=== PATIENT | female | born 1945 | race Caucasian/White ===

== ENCOUNTER 2017-02-15 08:27 | Day surgery (SDC) | payer MEDICARE, BC ==
[2017-02-10 11:27] VITALS: BMI 23.0
[~2017-02-15 08:27] MED LIST: LIDOCAINE 1% 20 ML VIAL (10MG/ML) FOR IV START INTRADERMA PRN
[2017-02-15 09:25] VITALS: RESP 16; TEMP 97
[2017-02-15] MEDS: LACTATED RINGERS 1,000 ML IV SCH ×2 (09:36→10:02)
[2017-02-15] MEDS ORDERED: PROPOFOL 10 MG/ML 20 ML VIAL IV ONE (10:03)
--- NOTE | 2017-02-15 10:42 | P.PCN ---
Date of Procedure: 02/15/17 Procedure(s) Performed: Procedure: Total colonoscopy. Preoperative diagnosis: Screening for neoplasia, patient has history of polyps. Postoperative diagnosis: Exam within normal limits. Preparation: HalfLytely prep. Sedation: Was provided by anesthesia. Brief clinical history: The patient is a 71-year-old female who was scheduled for this evaluation for screening for neoplasia because of history of polyps. Her last examination was in September 2012 the patient has no abdominal complaints, bleeding or anemia. Procedure: With the patient on her left lateral decubitus position and after informed consent and adequate sedation, the perianal area was inspected and it did not show any fissures or fistulas. There were no masses felt on digital rectal examination. The Olympus CFQ 160L video colonoscope was then inserted in the rectum in the usual fashion and advanced to the cecum. The mucosa appeared healthy. No polyps or tumors were seen or any obvious diverticular disease or other pathology. I retroflexed endoscope in the rectum before the endoscope was withdrawn. The patient tolerated the procedure well. Plan: The patient was reassured. She will follow-up with you as planned and I recommended a repeat exam in 5 years depending on her overall health at that time. She will be discussing that with you.
[2017-02-15 10:59] VITALS: BP 146/75; PULSE 66
== END 2017-02-15 11:11 | disposition home or self-care (01) ==
LOC: ORWHC2ENDO 08:27
DX: Z12.11 Encounter for screening for malignant neoplasm of colon (principal); Z86.010 Personal history of colon polyps; K21.9 Gastro-esophageal reflux disease without esophagitis; E78.5 Hyperlipidemia, unspecified; G25.81 Restless legs syndrome; M19.90 Unspecified osteoarthritis, unspecified site; Z79.82 Long term (current) use of aspirin; Z79.891 Long term (current) use of opiate analgesic; Z79.899 Other long term (current) drug therapy
CPT/HCPCS: J2704; G0105

== ENCOUNTER → 2017-04-28 | Outpatient (CLI) | payer MEDICARE, BC ==
--- NOTE | 2017-04-28 10:56 | WWHP ---
DATE OF SERVICE: 04/28/2017 CHIEF COMPLAINT: The patient is here for her routine gynecologic exam. HPI: This is a 71-year-old G4, P3 with an LMP of 1988 who is status post [facility] for benign problems. The patient is without gynecologic complaints. PAST MEDICAL HISTORY: Depression and anxiety, elevated cholesterol, restless leg syndrome, macular degeneration, gastroesophageal reflux disease, osteopenia and basal cell skin cancer in the past. MEDICATIONS: 1. Cymbalta 60 mg daily. 2. Requip 2 mg t.i.d. 3. [place] 5/325 one q.i.d. p.r.n. 4. Ocuvite 1 daily. 5. Vytorin / daily. 6. Protonix 40 mg daily. 7. Aspirin 81 mg daily. 8. Motrin 600 mg b.i.d. p.r.n. ALLERGIES: No known drug allergies. PAST SURGICAL HISTORY: Foot surgery, left knee replacement 01/18/2014, right knee replacement 2015, left inguinal hernia repair 2015, colonoscopies 2011 and 2015, breast reduction surgery in 2000, [facility] with unilateral oophorectomy 1988. SOCIAL HISTORY: She denies tobacco and drug use and has about 3 to 4 alcoholic drinks per week. She has been since 1960. FAMILY HISTORY: Brother of heart disease. Father had heart disease. Sister had some type of cancer, but is uncertain of the type and brother had leukemia. REVIEW OF SYSTEMS: The patient has gained about 9 pounds over the last year. She denies respiratory, cardiac, or GI problems. She denies maltreatment or falling. : She denies any significant urinary leakage but does feel like her stream is slower, but this is not a problem for her. PHYSICAL EXAM: Blood pressure 156/79. Height 5 feet 4 inches. Weight 134 pounds. Temperature 98.4, pulse 66. This a well-developed, well-nourished white female who is alert and oriented x3 in no acute distress. HEENT is within normal limits. NECK: Supple without mass or thyromegaly. CHEST AND LUNGS: Clear to auscultation. HEART: Regular rate and rhythm. Breasts are without mass or discharge. There is central nipple inversion which the patient states has been that way for many years and no palpable masses or tenderness. Axillary exam is negative for adenopathy. BACK: Negative for CVA tenderness. ABDOMEN: Soft, nontender, without palpable masses. PELVIC EXAM: External genitalia reveals moderate atrophy without lesions. Vagina reveals moderate atrophy without lesions and there is a grade 2 rectocele which is stable from her previous exam. Bimanual exam is negative for mass or tenderness. Rectovaginal exam confirms a small rectocele and is negative for rectal masses or tenderness and is negative for occult blood. EXTREMITIES: Nontender. IMPRESSION: 1. A 71-year-old menopausal female, status post total abdominal hysterectomy and unilateral oophorectomy for benign reasons. 2. Grade 2 rectocele which is asymptomatic and is stable. 3. History of osteopenia. PLAN: 1. Pap smears have been discontinued. 2. Self breast examination was discussed. 3. Mammogram was recently done earlier this year at [facility], it was benign per the patient. She will repeat this and states she will plan on doing them here in the future. 4. Osteoporosis prevention was discussed. She had bone density testing done on 09/21/2016 which again showed osteopenia. Will plan on repeating this in about 2 years. 5. We have discussed her elevated blood pressure. I have recommended she do regular blood pressure checks and she will follow up with Dr. Amador for elevated blood pressure. 6. She will return in one year.
== END | disposition home or self-care (01) ==
LOC: WWCWWP 09:28
PROVIDERS: ATTEND Obstetrics & Gynecology
DX: Z53.9 Procedure and treatment not carried out, unspecified reason (principal)

== ENCOUNTER 2017-07-14 01:11 | Inpatient (IN) | payer MEDICARE, BC ==
[2017-07-14] MEDS ORDERED: ACETAMINOPHEN TAB 500 MG TAB PO STA (01:27)
[2017-07-14] MEDS ORDERED: SODIUM CHLORIDE 0.9% 500 ML IV SCH (01:30)
--- NOTE | 2017-07-14 01:30 | ED ---
General Adult HPI - General Chief complaint: Extremity Injury, Lower Stated complaint: pain Time Seen by Provider: 07/14/17 01:22 Source: patient, family, EMS, RN notes reviewed Mode of arrival: EMS Limitations: physical limitation - History of Present Illness Initial comments: Patient is a pleasant 71-year-old female presenting to the emergency Department with diffuse pain. Onset was around 9:00. Patient complains of pain all over, she feels mostly in her joints. Patient does have chronic arthritis however this feels somewhat different. No chest pain or dyspnea. No cough or upper respiratory symptoms. No dysuria or abdominal pain. - Related Data Home Medications Medication Instructions Recorded Confirmed Aspirin 81 mg PO DAILY 06/11/14 07/14/17 Calcium Citrate/Vitamin D3 1 each PO BID 06/11/14 07/14/17 [Calcium Citrate - Vit D3 Tab] Ezetimibe/Simvastatin [Vytorin 1 each PO DAILY 06/11/14 07/14/17 10-20 mg Tablet] Ibuprofen [Motrin] 600 mg PO TID PRN 06/11/14 07/14/17 Pantoprazole Sodium [Protonix] 40 mg PO BID PRN 06/11/14 07/14/17 Vit A,C & E/Lutein/Minerals 1 each PO DAILY 06/11/14 07/14/17 [Ocuvite Tablet] DULoxetine HCL [Cymbalta] 60 mg PO DAILY 02/10/17 07/14/17 rOPINIRole HCL [Requip] 2 mg PO TID 02/10/17 07/14/17 HYDROcodone/APAP 10-325MG [[place] 1 tab PO BID 07/14/17 07/14/17 10-325] Allergies Allergy/AdvReac Type Severity Reaction Status Date / Time No Known Allergies Allergy Verified 07/14/17 01:17 Review of Systems ROS Statement: Those systems with pertinent positive or pertinent negative responses have been documented in the HPI. ROS Other: All systems not noted in ROS Statement are negative. Constitutional: Denies: chills Eyes: Denies: eye pain ENT: Denies: ear pain Respiratory: Denies: cough, dyspnea Cardiovascular: Denies: chest pain Endocrine: Reports: fatigue Gastrointestinal: Denies: abdominal pain, nausea, vomiting Genitourinary: Denies: dysuria Musculoskeletal: Reports: arthralgia (Diffuse). Denies: back pain Skin: Denies: lesions Neurological: Denies: weakness Past Medical History Past Medical History: GERD/Reflux, Hyperlipidemia, Osteoarthritis (OA) Additional Past Medical History / Comment(s): RESTLESS LEG SYNDROME, History of Any Multi-Drug Resistant Organisms: None Reported Past Surgical History: Breast Surgery, Heart Catheterization, Hernia Repair, Hysterectomy, Joint Replacement, Orthopedic Surgery Additional Past Surgical History / Comment(s): RIGHT FOOT HAMMER TOE, harsh bunionectomy, harsh BREAST REDUCTION, RT KNEE UNISPACER, HARSH KNEE REPLACEMENT Past Anesthesia/Blood Transfusion Reactions: No Reported Reaction Past Psychological History: Depression Smoking Status: Never smoker Past Alcohol Use History: Occasional Past Drug Use History: None Reported - Past Family History Mother Family Medical History: Cancer Additional Family Medical History / Comment(s): ovarian Brother(s) Family Medical History: Cancer, Deep Vein Thrombosis (DVT) Additional Family Medical History / Comment(s): LEUKEMIA Sister(s) Family Medical History: Cancer, Deep Vein Thrombosis (DVT) Additional Family Medical History / Comment(s): 3 SISTERS HAD DVT General Exam Limitations: physical limitation General appearance: alert, in no apparent distress Head exam: Present: atraumatic Eye exam: Present: normal appearance, PERRL ENT exam: Present: normal oropharynx Neck exam: Present: normal inspection. Absent: tenderness, meningismus Respiratory exam: Present: normal lung sounds bilaterally Cardiovascular Exam: Present: regular rate, normal rhythm GI/Abdominal exam: Present: soft. Absent: tenderness Extremities exam: Present: full ROM, other (Diffuse joint deformity consistent with patient's history of rheumatoid arthritis. Mostly involving the hand/ fingers.). Absent: tenderness Neurological exam: Present: alert Psychiatric exam: Present: normal affect, normal mood Skin exam: Present: normal color. Absent: rash Course Vital Signs 07/14/17 07/14/17 07/14/17 01:11 01:47 02:14 Temperature 100.1 F H 98.4 F Pulse Rate 83 81 77 Respiratory 18 16 16 Rate Blood Pressure 165/79 147/66 128/60 O2 Sat by Pulse 99 97 100 Oximetry 07/14/17 07/14/17 07/14/17 02:54 03:45 05:19 Temperature 99.2 F 99.4 F Pulse Rate 81 76 88 Respiratory 16 16 18 Rate Blood Pressure 132/63 126/60 126/56 O2 Sat by Pulse 99 100 97 Oximetry - Reevaluation(s) Reevaluation #1: 07/14/17 04:45 Patient was reevaluated and did feel somewhat better. Patient does have evidence of urinary tract infection. Patient does not meet sepsis criteria. Patient still complains of pain all over. Patient states very abnormal for her. Patient was unable to get up and walk secondary to pain diffusely but mostly in the right foot. Patient and family were updated on results. Dr. Gonzalez was paged, covering for Dr. Amador. 07/14/17 05:26 Case was discussed in detail with Dr. Gonzalez, who will admit for Dr. Amador. She believes symptoms are likely secondary to flareup of rheumatoid arthritis from a urinary tract infection. She recommends adding Solu-Medrol 40 every 83 doses. EKG Findings - EKG Comments: EKG Findings:: Sinus rhythm at 81 with sinus arrhythmia. AK 138. QRS 92. QT 364. QTC 422. Normal axis. Normal QRS. No acute ST change. Medical Decision Making - Lab Data Result diagrams: 07/14/17 01:33 07/14/17 01:33 Lab Results 07/14/17 07/14/17 07/14/17 Range/Units 01:33 01:33 01:33 WBC 9.4 (3.8-10.6) k/uL RBC 3.75 L (3.80-5.40) m/uL Hgb 12.2 (11.4-16.0) gm/dL Hct 36.5 (34.0-46.0) % MCV 97.2 (80.0-100.0) fL MCH 32.4 (25.0-35.0) pg MCHC 33.4 (31.0-37.0) g/dL RDW 12.8 (11.5-15.5) % Plt Count 203 (150-450) k/uL Neutrophils % 87 % Lymphocytes % 7 % Monocytes % 3 % Eosinophils % 1 % Basophils % 0 % Neutrophils # 8.2 H (1.3-7.7) k/uL Lymphocytes # 0.7 L (1.0-4.8) k/uL Monocytes # 0.3 (0-1.0) k/uL Eosinophils # 0.1 (0-0.7) k/uL Basophils # 0.0 (0-0.2) k/uL PT (9.0-12.0) sec INR (<1.2) APTT (22.0-30.0) sec Sodium 139 (137-145) mmol/L Potassium 3.8 (3.5-5.1) mmol/L Chloride 108 H (98-107) mmol/L Carbon Dioxide 24 (22-30) mmol/L Anion Gap 7 mmol/L BUN 24 H (7-17) mg/dL Creatinine 0.60 (0.52-1.04) mg/dL Est GFR (MDRD) Af Amer >60 (>60 ml/min/1.73 sqM) Est GFR (MDRD) Non-Af >60 (>60 ml/min/1.73 sqM) Glucose 107 H (74-99) mg/dL Plasma Lactic Acid Rolan (0.7-2.0) mmol/L Calcium 9.0 (8.4-10.2) mg/dL Total Bilirubin 0.7 (0.2-1.3) mg/dL AST 26 (14-36) U/L ALT 44 (9-52) U/L Alkaline Phosphatase 57 (38-126) U/L Total Creatine Kinase 77 (30-135) U/L CK-MB (CK-2) 2.2 (0.0-2.4) ng/mL CK-MB (CK-2) Rel Index 2.9 Troponin I <0.012 (0.000-0.034) ng/mL Total Protein 5.8 L (6.3-8.2) g/dL Albumin 3.5 (3.5-5.0) g/dL Urine Color Urine Appearance (Clear) Urine pH (5.0-8.0) Ur Specific [place] (1.001-1.035) Urine Protein (Negative) Urine Glucose (UA) (Negative) Urine Ketones (Negative) Urine Blood (Negative) Urine Nitrite (Negative) Urine Bilirubin (Negative) Urine Urobilinogen (<2.0) mg/dL Ur Leukocyte Esterase (Negative) Urine RBC (0-5) /hpf Urine WBC (0-5) /hpf Ur Squamous Epith Cells (0-4) /hpf Urine Mucus (None) /hpf 07/14/17 07/14/17 07/14/17 Range/Units 01:33 01:33 02:08 WBC (3.8-10.6) k/uL RBC (3.80-5.40) m/uL Hgb (11.4-16.0) gm/dL Hct (34.0-46.0) % MCV (80.0-100.0) fL MCH (25.0-35.0) pg MCHC (31.0-37.0) g/dL RDW (11.5-15.5) % Plt Count (150-450) k/uL Neutrophils % % Lymphocytes % % Monocytes % % Eosinophils % % Basophils % % Neutrophils # (1.3-7.7) k/uL Lymphocytes # (1.0-4.8) k/uL Monocytes # (0-1.0) k/uL Eosinophils # (0-0.7) k/uL Basophils # (0-0.2) k/uL PT 10.3 (9.0-12.0) sec INR 1.0 (<1.2) APTT 21.4 L (22.0-30.0) sec Sodium (137-145) mmol/L Potassium (3.5-5.1) mmol/L Chloride (98-107) mmol/L Carbon Dioxide (22-30) mmol/L Anion Gap mmol/L BUN (7-17) mg/dL Creatinine (0.52-1.04) mg/dL Est GFR (MDRD) Af Amer (>60 ml/min/1.73 sqM) Est GFR (MDRD) Non-Af (>60 ml/min/1.73 sqM) Glucose (74-99) mg/dL Plasma Lactic Acid Rolan 1.5 (0.7-2.0) mmol/L Calcium (8.4-10.2) mg/dL Total Bilirubin (0.2-1.3) mg/dL AST (14-36) U/L ALT (9-52) U/L Alkaline Phosphatase (38-126) U/L Total Creatine Kinase (30-135) U/L CK-MB (CK-2) (0.0-2.4) ng/mL CK-MB (CK-2) Rel Index Troponin I (0.000-0.034) ng/mL Total Protein (6.3-8.2) g/dL Albumin (3.5-5.0) g/dL Urine Color Yellow Urine Appearance Clear (Clear) Urine pH 7.5 (5.0-8.0) Ur Specific [place] 1.016 (1.001-1.035) Urine Protein Negative (Negative) Urine Glucose (UA) Negative (Negative) Urine Ketones Negative (Negative) Urine Blood Negative (Negative) Urine Nitrite Negative (Negative) Urine Bilirubin Negative (Negative) Urine Urobilinogen <2.0 (<2.0) mg/dL Ur Leukocyte Esterase Large H (Negative) Urine RBC 2 (0-5) /hpf Urine WBC 16 H (0-5) /hpf Ur Squamous Epith Cells 2 (0-4) /hpf Urine Mucus Rare H (None) /hpf - Radiology Data Radiology results: image reviewed (Chest x-ray shows no acute process. X-ray of the right foot shows no fracture or malalignment. Severe midfoot osteoarthritis. Postsurgical changes.) Disposition Clinical Impression: Polyarthralgia, Urinary tract infection Disposition: ADMITTED IP TO THIS [facility] Referrals: Cale Amador MD [Primary Care Provider] - 1-2 days Decision Time: 05:26
[2017-07-14 01:50] LABS: Prothrombin Time 10.3 sec (9.0-12.0)
[2017-07-14 01:53] LABS: ALT 44 U/L (9-52); AST 26 U/L (14-36); Alkaline Phosphatase 57 U/L (38-126); Anion Gap 7 mmol/L; Basophils % (A) 0 %; Blood Urea Nitrogen 24 mg/dL (7-17); CH 32.7; CHCM 33.8; Carbon Dioxide 24 mmol/L (22-30); Chloride 108 mmol/L (98-107); Eosinophils # (A) 0.1 k/uL (0-0.7); Eosinophils % (A) 1 %; Glucose 107 mg/dL (74-99); HCT 36.5 % (34.0-46.0); HDW 2.39; HGB 12.2 gm/dL (11.4-16.0); Luc # (Auto) 0.08; Luc % (Auto) 1; Lymphocytes # (A) 0.7 k/uL (1.0-4.8); Lymphocytes % (A) 7 %; MCH 32.4 pg (25.0-35.0); MCHC 33.4 g/dL (31.0-37.0); MCV 97.2 fL (80.0-100.0); Mean Platelet Volume 6.6; Monocytes # (A) 0.3 k/uL (0-1.0); Monocytes % (A) 3 %; Neutrophils # (A) 8.2 k/uL (1.3-7.7); Neutrophils % (A) 87 %; Non-African American GFR(MDRD) >60 (>60 ml/min/1.73 sqM); Potassium 3.8 mmol/L (3.5-5.1); RBC 3.75 m/uL (3.80-5.40); RDW 12.8 % (11.5-15.5); Sodium 139 mmol/L (137-145); Total Bilirubin 0.7 mg/dL (0.2-1.3); Total Protein 5.8 g/dL (6.3-8.2); WBC 9.4 k/uL (3.8-10.6)
[2017-07-14 02:00] LABS: Creatine Kinase 77 U/L (30-135)
[2017-07-14 02:09] LABS: Partial Thromboplastin Time 21.4 sec (22.0-30.0)
[2017-07-14 02:13] LABS: Creatine Kinase MB 2.2 ng/mL (0.0-2.4); Troponin I <0.012 ng/mL (0.000-0.034)
[2017-07-14 02:26] LABS: Appearance,Urine Clear (Clear); Bilirubin,Urine Negative (Negative); Glucose,Urine (UA) Negative (Negative); Ketones,Urine Negative (Negative); Leukocyte Esterase,Urine Large (Negative); Mucus,Urine Rare /hpf; Nitrite,Urine Negative (Negative); PH, Urine 7.5 (5.0-8.0); Particle Count 3426; Protein,Urine Negative (Negative); RBC,Urine 2 /hpf (0-5); Specific Gravity,Urine 1.016 (1.001-1.035); Squamous Epithelial Cell,Urine 2 /hpf (0-4); UA Billing (MACRO vs. MICRO) MICRO; Urobilinogen,Urine <2.0 mg/dL (<2.0); WBC,Urine 16 /hpf (0-5)
--- NOTE | 2017-07-14 02:43 | XR ---
INDICATION: Fever COMPARISON: CXR 08/11/12 FINDINGS: AP and lateral views of the chest are obtained. The cardiomediastinal silhouette is within normal limits. There is thoracic aortic atherosclerosis. Pulmonary vascularity is normal. Lungs are clear. No pleural effusion or pneumothorax. Bony elements are within normal limits. IMPRESSION: No acute cardiopulmonary disease.
[2017-07-14] MEDS ORDERED: MORPHINE SULFATE 4 MG/ML SYRINGE IVP STA (02:48)
--- NOTE | 2017-07-14 03:51 | XR ---
RIGHT FOOT 3 views INDICATION: Right foot pain COMPARISON: None. FINDINGS: AP, oblique, and lateral nonweightbearing views of the right foot are obtained. Bones are osteopenic. There are postsurgical changes of the foot. There has been osteotomy of the first metatarsal fixated by 2 screws. There is partial osseous bridging across the osteotomy site. There has been likely bunionectomy. There is hardware in the first proximal phalanx. There has been surgical arthrodesis of the second proximal interphalangeal joint without fusion across the joint space at this time. There is no evidence of acute fracture or subluxation. There is severe mid foot osteoarthritis. There is mild plantar calcaneal enthesopathy. IMPRESSION: 1. No evidence of acute fracture or malalignment. 2. Postsurgical changes of bunionectomy and first metatarsal osteotomy and arthrodesis of the second proximal interphalangeal joint. 3. Severe midfoot osteoarthritis.
[2017-07-14] MEDS ORDERED: LEVOFLOXACIN 750MG-D5W PMX 750 MG in DEXTROSE/WATER 1 150ML.BAG IVPB STA (05:11)
[2017-07-14] MEDS ORDERED: LEVOFLOXACIN 750MG-D5W PMX 750 MG in DEXTROSE/WATER 1 150ML.BAG IVPB SCH (05:15)
[2017-07-14] MEDS ORDERED: NALOXONE 0.4 MG/ML 1 ML VIAL IV PRN (05:27)
[2017-07-14 06:40] VITALS: BMI 23.9
[2017-07-14] MEDS: methylPREDNISolone SOD SUCCI 40 MG/ML 1 ML VIAL IV SCH ×3 (06:49→17:49)
[2017-07-14] MEDS: MORPHINE SULFATE 4 MG/ML SYRINGE IV PRN ×3 (06:50→17:49)
[2017-07-14] MEDS ORDERED: PANTOPRAZOLE 40 MG TABLET PO PRN (09:29)
[2017-07-14] MEDS ORDERED: ASPIRIN 81 MG CHEW PO SCH (09:30)
[2017-07-14] MEDS ORDERED: EZETIMIBE 10 MG TAB PO SCH ×2 (09:30→10:40)
[2017-07-14] MEDS ORDERED: ATORVASTATIN 10 MG TAB PO SCH (10:00)
[2017-07-14] MEDS: DULoxetine HCL 60 MG CAPSULE.DR PO SCH (10:30)
[2017-07-14] MEDS: CALCIUM CARB-VIT D 500MG-200UN 1 EACH TAB PO SCH (10:32)
[2017-07-14] MEDS: HYDROcodone/APAP 10-325MG 1 EACH TAB PO PRN ×2 (10:36→22:42)
--- NOTE | 2017-07-14 16:32 | P.HPIM ---
History of Present Illness H&P Date: 07/14/17 Chief Complaint: Weakness polyarthritis pain, fever This Is a 71-year-old pleasant lady patient of Dr. Amador chest underlying history of hyperlipidemia o osteoarthritis GERD restless leg syndrome, admitted to the hospital secondary to acute onset generalized joint pains first involving the foot and ankles then bilateral knees, bilateral hips shoulders and wrists, is also accompanied by fever 100.9, patient denies any nausea no vomiting, no new medications or recent foreign travels, patient took Motrin for her restless leg and no cold for her arthritis pain however this is a new type of pain that she had secondary to generalized involvement of large joints, she also swelling and effusion of the right foot, patient denies any localized motor weakness significant for symptoms to include Guillaine- Darnell. The patient was not diagnosed to have rheumatoid arthritis in the past nor did she have any gout, no previous history of Lyme patient has significant pain in such a way that she cannot bear weight based on the significant pain on the right side. Patient has neck pain and back pain, or other extremity pain as well Emergency room she was evaluated however she was found to have pyuria with urinalysis and x-ray of the foot failed to reveal any fractures however she does have severe midfoot osteoarthritis, WBC was 9.4 creatinine 0.6 patient was admitted secondary to the fever and polyarthritis, urinary tract infection underlying early developing sepsis cannot be excluded she was started on IV Rocephin patient remains to be hemodynamically stable Review of Systems Constitutional: Reports as per HPI, Reports chills, Reports fatigue, Denies anorexia, Denies chronic headaches, Denies chronic pain, Denies daytime sleepiness, Denies fever, Denies lethargy, Denies malaise, Denies night sweats, Denies poor appetite, Denies sweats, Denies weakness, Denies weight gain, Denies weight loss Ears, nose, mouth and throat: Reports as per HPI, Denies ant. neck pain, Denies bleeding gums, Denies dental pain, Denies dysphagia, Denies epistaxis, Denies headache, Denies hoarseness, Denies mouth pain, Denies nasal congestion, Denies nasal discharge, Denies neck fullness/pressure, Denies neck lump, Denies nose pain, Denies odynophagia, Denies post-nasal drip, Denies sinus pain, Denies sinus pressure, Denies swelling in mouth, Denies swelling in throat, Denies sore throat, Denies vertigo, Denies voice changes Cardiovascular: Reports as per HPI, Denies chest pain, Denies claudication, Denies decreased exercise tolerance, Denies dyspnea on exertion, Denies edema, Denies high blood pressure, Denies irregular heart beat, Denies leg edema, Denies lightheadedness, Denies orthopnea, Denies palpitations, Denies paroxysmal nocturnal dyspnea, Denies phlebitis, Denies rapid heart beat, Denies shortness of breath, Denies syncope Respiratory: Reports as per HPI, Denies congestion, Denies cough, Denies cough with sputum, Denies dyspnea, Denies excessive sputum, Denies hemoptysis, Denies home oxygen, Denies pain, Denies pain on inspiration, Denies pleurisy, Denies respiratory infections, Denies sleep apnea, Denies snoring, Denies wheezing Gastrointestinal: Reports as per HPI, Denies abdominal pain, Denies belching, Denies bloating, Denies BRBPR, Denies change in bowel habits, Denies coffee ground emesis, Denies constipation, Denies diarrhea, Denies dyspepsia, Denies early satiety, Denies excessive gas, Denies heartburn, Denies hematemesis, Denies hematochezia, Denies indigestion, Denies jaundice, Denies lactose intolerance, Denies loss of appetite, Denies melena, Denies nausea, Denies vomiting Genitourinary: Reports as per HPI, Denies abnormal vaginal bleeding, Denies decreased libido, Denies difficulty conceiving, Denies difficulty voiding, Denies dysmenorrhea, Denies dyspareunia, Denies dysuria, Denies flank pain, Denies genital sores, Denies hematuria, Denies hot flashes, Denies incomplete emptying, Denies kidney stones, Denies menorrhagia, Denies mixed incontinence, Denies nocturia, Denies pelvic pain, Denies post void dribbling, Denies , Denies prolapse symptoms, Denies stress incontinence, Denies urge incontinence , Denies urgency, Denies urinary frequency, Denies vaginal discharge, Denies vaginal dryness, Denies vaginal itching, Denies vaginal odor Menstruation: Reports as per HPI, Denies amenorrhea, Denies amenorrhea on BC, Denies currently menstrual, Denies cycle < 21 days, Denies cycle > 35 days, Denies cycle variable, Denies menses 1-7 days, Denies menses 8 or > days, Denies menses variable, Denies period heavy, Denies period light, Denies period normal, Denies period spotting, Denies post hysterectomy, Denies postmenopausal , Denies premenarcheal Musculoskeletal: Reports as per HPI, Reports gait dysfunction, Reports limitation of motion, Reports morning stiffness, Reports neck pain, Denies arm numbness/tingling, Denies atrophy, Denies fractures, Denies frequent falls, Denies hot joints, Denies leg numbness/tingling, Denies loss of height, Denies low back pain, Denies muscle cramps, Denies muscle weakness, Denies myalgias, Denies neck stiffness, Denies prior amputations, Denies redness of joints, Denies shooting arm pain, Denies shooting leg pain Musculoskeletal: right: ankle swelling, foot swelling, hand pain, bilateral: ankle pain, elbow pain, elbow stiffness, foot pain, foot stiffness, hand stiffness, hip stiffness, hip swelling, knee pain, knee stiffness, shoulder pain , wrist pain Integumentary: Reports as per HPI Neurological: Reports as per HPI, Reports gait dysfunction, Denies aphasia, Denies ataxia, Denies balance difficulties, Denies burning pain, Denies change in mentation, Denies change in smell/taste, Denies change in speech, Denies confusion, Denies convulsions, Denies double vision, Denies head injury, Denies headaches, Denies hearing difficulties, Denies lack of coordination, Denies loss of vision, Denies memory loss, Denies migraines, Denies motor disturbance, Denies numbness, Denies paralysis, Denies paresthesias, Denies seizures, Denies sensory deficit, Denies spasticity, Denies syncope, Denies tic, Denies tingling , Denies transient paralysis, Denies tremors, Denies vertigo, Denies weakness, Denies visual changes Psychiatric: Reports as per HPI, Denies anhedonia, Denies anxiety, Denies anxiety attacks, Denies change in appetite, Denies change in libido, Denies change in sleep habits, Denies confusion, Denies depression, Denies difficulty concentrating, Denies disorientation, Denies hallucinations, Denies hopelessness , Denies hypersomnia, Denies insomnia, Denies irritability, Denies memory loss, Denies mood swings, Denies paranoia, Denies sadness/tearfulness, Denies sleep disturbances, Denies suicidal ideation Endocrine: Reports as per HPI, Denies cold intolerance, Denies deepening of the voice, Denies excessive sweating, Denies excessive thirst, Denies fatigue, Denies flushing, Denies heat intolerance, Denies high blood sugars, Denies increase in ring/shoe/hat size, Denies low blood sugars, Denies nocturia, Denies palpitations, Denies polydipsia, Denies polyphagia, Denies polyuria, Denies proptosis, Denies recent glucocorticoid use, Denies thyroid mass, Denies weight change Hematologic/Lymphatic: Reports as per HPI, Denies easy bleeding, Denies easy bruising, Denies lymphadenopathy, Denies lymphedema, Denies thrombophilia Allergic/Immunologic: Reports as per HPI, Denies allergic rhinitis, Denies anaphylaxis, Denies angioedema, Denies gluten intolerance, Denies persistent infections, Denies seasonal allergies, Denies urticaria, Denies wheezing Past Medical History Past Medical History: GERD/Reflux, Hyperlipidemia, Osteoarthritis (OA) Additional Past Medical History / Comment(s): RESTLESS LEG SYNDROME, History of Any Multi-Drug Resistant Organisms: None Reported Past Surgical History: Breast Surgery, Heart Catheterization, Hernia Repair, Hysterectomy, Joint Replacement, Orthopedic Surgery Additional Past Surgical History / Comment(s): RIGHT FOOT HAMMER TOE, harsh bunionectomy, harsh BREAST REDUCTION, HARSH KNEE REPLACEMENT Past Anesthesia/Blood Transfusion Reactions: No Reported Reaction Smoking Status: Never smoker Past Alcohol Use History: Occasional Additional Past Alcohol Use History / Comment(s): . Past Drug Use History: None Reported - Past Family History Mother Family Medical History: Cancer Additional Family Medical History / Comment(s): ovarian Brother(s) Family Medical History: Cancer, Deep Vein Thrombosis (DVT) Additional Family Medical History / Comment(s): LEUKEMIA Sister(s) Family Medical History: Cancer, Deep Vein Thrombosis (DVT) Additional Family Medical History / Comment(s): 3 SISTERS HAD DVT Medications and Allergies Home Medications Medication Instructions Recorded Confirmed Type Aspirin 81 mg PO DAILY 06/11/14 07/14/17 History Calcium Citrate/Vitamin D3 1 tab PO BID 06/11/14 07/14/17 History [Calcium Citrate - Vit D3 Tab] Ezetimibe/Simvastatin [Vytorin 1 tab PO DAILY 06/11/14 07/14/17 History 10-20 mg Tablet] Ibuprofen [Motrin] 600 mg PO TID PRN 06/11/14 07/14/17 History Pantoprazole Sodium [Protonix] 40 mg PO BID PRN 06/11/14 07/14/17 History Vit A,C & E/Lutein/Minerals 1 tab PO DAILY 06/11/14 07/14/17 History [Ocuvite Tablet] DULoxetine HCL [Cymbalta] 60 mg PO DAILY 02/10/17 07/14/17 History rOPINIRole HCL [Requip] 2 mg PO TID 02/10/17 07/14/17 History HYDROcodone/APAP 10-325MG [[place]lin 1 tab PO BID 07/14/17 07/14/17 History 10-325] Allergies Allergy/AdvReac Type Severity Reaction Status Date / Time No Known Allergies Allergy Verified 07/14/17 07:36 Physical Exam Vitals: Vital Signs Temp Pulse Pulse Resp BP BP Pulse Ox 07/14/17 09:29 98.4 F 07/14/17 06:37 98.5 F 82 20 119/71 100 07/14/17 05:19 99.4 F 88 18 126/56 97 07/14/17 03:45 99.2 F 76 16 126/60 100 07/14/17 02:54 81 16 132/63 99 07/14/17 02:14 98.4 F 77 16 128/60 100 07/14/17 01:47 81 16 147/66 97 07/14/17 01:11 100.1 F H 83 18 165/79 99 Intake and Output 07/13/17 07/14/17 07/14/17 22:59 06:59 14:59 Other: Weight 61.235 kg - Constitutional General appearance: cooperative, no acute distress - EENT Eyes: anicteric sclerae, EOMI, PERRLA ENT: NA/AT, normal oropharynx - Neck Neck: no lymphadenopathy, normal ROM, no other, no rigidity, no stridor, no thyromegaly Thyroid: bilateral: normal size - Respiratory Respiratory: bilateral: CTA, diminished - Cardiovascular Rhythm: regular Heart sounds: normal: S1, S2 Abnormal Heart Sounds: no systolic murmur, no diastolic murmur, no rub, no S3 Gallop, no S4 Gallop, no click, no other - Gastrointestinal General gastrointestinal: normal bowel sounds, soft - Integumentary Integumentary: normal, normal turgor - Neurologic Neurologic: CNII-XII intact - Musculoskeletal Musculoskeletal: gait normal, strength equal bilaterally - Psychiatric Psychiatric: A&O x's 3, intact judgment & insight Results CBC & Chem 7: 07/14/17 01:33 07/14/17 01:33 Labs: Abnormal Lab Results - Last 24 Hours (Table) 07/14/17 07/14/17 07/14/17 Range/Units 01:33 01:33 01:33 RBC 3.75 L (3.80-5.40) m/uL Neutrophils # 8.2 H (1.3-7.7) k/uL Lymphocytes # 0.7 L (1.0-4.8) k/uL APTT 21.4 L (22.0-30.0) sec Chloride 108 H (98-107) mmol/L BUN 24 H (7-17) mg/dL Glucose 107 H (74-99) mg/dL Total Protein 5.8 L (6.3-8.2) g/dL Ur Leukocyte Esterase (Negative) Urine WBC (0-5) /hpf Urine Mucus (None) /hpf 07/14/17 Range/Units 02:08 RBC (3.80-5.40) m/uL Neutrophils # (1.3-7.7) k/uL Lymphocytes # (1.0-4.8) k/uL APTT (22.0-30.0) sec Chloride (98-107) mmol/L BUN (7-17) mg/dL Glucose (74-99) mg/dL Total Protein (6.3-8.2) g/dL Ur Leukocyte Esterase Large H (Negative) Urine WBC 16 H (0-5) /hpf Urine Mucus Rare H (None) /hpf Microbiology - Last 24 Hours (Table) 07/14/17 02:08 Urine Culture - Preliminary Urine,Voided Laboratory Results WBC 9.4 k/uL (3.8-10.6) 07/14/17 01:33 RBC 3.75 m/uL (3.80-5.40) L 07/14/17 01:33 Hgb 12.2 gm/dL (11.4-16.0) 07/14/17 01:33 Hct 36.5 % (34.0-46.0) 07/14/17 01:33 MCV 97.2 fL (80.0-100.0) 07/14/17 01:33 MCH 32.4 pg (25.0-35.0) 07/14/17 01:33 MCHC 33.4 g/dL (31.0-37.0) 07/14/17 01:33 RDW 12.8 % (11.5-15.5) 07/14/17 01:33 Plt Count 203 k/uL (150-450) 07/14/17 01:33 Neutrophils % 87 % 07/14/17 01:33 Lymphocytes % 7 % 07/14/17 01:33 Monocytes % 3 % 07/14/17 01:33 Eosinophils % 1 % 07/14/17 01:33 Basophils % 0 % 07/14/17 01:33 Neutrophils # 8.2 k/uL (1.3-7.7) H 07/14/17 01:33 Lymphocytes # 0.7 k/uL (1.0-4.8) L 07/14/17 01:33 Monocytes # 0.3 k/uL (0-1.0) 07/14/17 01:33 Eosinophils # 0.1 k/uL (0-0.7) 07/14/17 01:33 Basophils # 0.0 k/uL (0-0.2) 07/14/17 01:33 ESR 12 mm/hr (0-20) 07/14/17 01:33 PT 10.3 sec (9.0-12.0) 07/14/17 01:33 INR 1.0 (<1.2) 07/14/17 01:33 APTT 21.4 sec (22.0-30.0) L 07/14/17 01:33 Sodium 139 mmol/L (137-145) 07/14/17 01:33 Potassium 3.8 mmol/L (3.5-5.1) 07/14/17 01:33 Chloride 108 mmol/L (98-107) H 07/14/17 01:33 Carbon Dioxide 24 mmol/L (22-30) 07/14/17 01:33 Anion Gap 7 mmol/L 07/14/17 01:33 BUN 24 mg/dL (7-17) H 07/14/17 01:33 Creatinine 0.60 mg/dL (0.52-1.04) 07/14/17 01:33 Est GFR (MDRD) Af Amer >60 (>60 ml/min/1.73 sqM) 07/14/17 01:33 Est GFR (MDRD) Non-Af >60 (>60 ml/min/1.73 sqM) 07/14/17 01:33 Glucose 107 mg/dL (74-99) H 07/14/17 01:33 Plasma Lactic Acid Rolan 1.5 mmol/L (0.7-2.0) 07/14/17 01:33 Calcium 9.0 mg/dL (8.4-10.2) 07/14/17 01:33 Total Bilirubin 0.7 mg/dL (0.2-1.3) 07/14/17 01:33 AST 26 U/L (14-36) 07/14/17 01:33 ALT 44 U/L (9-52) 07/14/17 01:33 Alkaline Phosphatase 57 U/L (38-126) 07/14/17 01:33 Total Creatine Kinase 77 U/L (30-135) 07/14/17 01:33 CK-MB (CK-2) 2.2 ng/mL (0.0-2.4) 07/14/17 01:33 CK-MB (CK-2) Rel Index 2.9 07/14/17 01:33 Troponin I <0.012 ng/mL (0.000-0.034) 07/14/17 01:33 C-Reactive Protein 8.5 mg/L (<10.0) 07/14/17 01:33 Total Protein 5.8 g/dL (6.3-8.2) L 07/14/17 01:33 Albumin 3.5 g/dL (3.5-5.0) 07/14/17 01:33 Urine Color Yellow 07/14/17 02:08 Urine Appearance Clear (Clear) 07/14/17 02:08 Urine pH 7.5 (5.0-8.0) 07/14/17 02:08 Ur Specific [place] 1.016 (1.001-1.035) 07/14/17 02:08 Urine Protein Negative (Negative) 07/14/17 02:08 Urine Glucose (UA) Negative (Negative) 07/14/17 02:08 Urine Ketones Negative (Negative) 07/14/17 02:08 Urine Blood Negative (Negative) 07/14/17 02:08 Urine Nitrite Negative (Negative) 07/14/17 02:08 Urine Bilirubin Negative (Negative) 07/14/17 02:08 Urine Urobilinogen <2.0 mg/dL (<2.0) 07/14/17 02:08 Ur Leukocyte Esterase Large (Negative) H 07/14/17 02:08 Urine RBC 2 /hpf (0-5) 07/14/17 02:08 Urine WBC 16 /hpf (0-5) H 07/14/17 02:08 Ur Squamous Epith Cells 2 /hpf (0-4) 07/14/17 02:08 Urine Mucus Rare /hpf (None) H 07/14/17 02:08 Thrombosis Risk Factor Assmnt - DVT/VTE Prophylaxis DVT/VTE Prophylaxis: Pharmacologic Prophylaxis ordered, Mechanical Prophylaxis ordered, Low risk, early ambulation encouraged - Choose All That Apply Any of the Below Risk Factors Present?: No Other Risk Factors: Yes Each Risk Factor Represents 2 Points: Age 61-74 years, Patient confined to bed Thrombosis Risk Factor Assessment Total Risk Factor Score: 4 Thrombosis Risk Factor Assessment Level: Moderate Risk Assessment and Plan Plan: 1. Acute febrile illness with polyarthritis symmetrical joint involvement along with pyuria, out to immune arthritis cannot be ruled out including new onset chest arthritis, patient would be given IV antibiotics for urinary tract infection, early sepsis is entertained, monitor for hemodynamic compensation along with bacteremia, patient is on IV Levaquin. Blood cultures are pending, 2. Acute polyarthritis symmetrical in distribution, a cannot be ruled out, she would have an RAYMUNDO and a and a CCP sed rate will be obtained, along with Crystal bone disease, uric acid calcium levels normal will be obtained. Patient was given 3 doses of Solu-Medrol 60 mg every 6 hours, would consult physical therapy and a serum protein electrophoresis 3. Hyperlipidemia 4. Inability to ambulate with foot deformities acute, physical therapy will be seeing her 5. Hyperlipidemia on Vytorin X 6. Restless leg on the. No 2 mg 3 times a day 7. DVT prophylaxis with mechanical as well as pharmacological treatments, patient's high risk 8. GI prophylaxis, on Protonix expected length of stay 2 nights anticipate home therapies
--- NOTE | 2017-07-14 17:59 | US ---
EXAMINATION TYPE: US kidneys/renal and bladder DATE OF EXAM: 07/14/2017 COMPARISON: Prior US in PACS CLINICAL HISTORY: flank pain, uti. EXAM MEASUREMENTS: Right Kidney: 10.3 x 5.5 x 4.7 cm Left Kidney: 9.3 x 4.8 x 5.1 cm Right Kidney: No hydronephrosis or masses seen Left Kidney: No hydronephrosis or masses seen Bladder: wnl Bilateral Jets seen: Yes There is no evidence for hydronephrosis at this point in time. No nephrolithiasis is seen. No luis s are identified. The urinary bladder is anechoic. Bilateral ureteral jets are seen. IMPRESSION: Negative retroperitoneal sonogram exam. No evidence of renal stone or obstruction.
[2017-07-14] MEDS: Acetaminophen-Codeine 300-30mg TAB PO PRN (20:21)
[2017-07-14] MEDS: ASPIRIN 81 MG CHEW PO SCH (20:24)
[2017-07-14] MEDS: ENOXAPARIN 40 MG/0.4 ML SYRINGE SQ SCH (20:24)
[2017-07-14] MEDS: ATORVASTATIN 10 MG TAB PO SCH (20:25)
[2017-07-14] MEDS: EZETIMIBE 10 MG TAB PO SCH (20:38)
[2017-07-15] MEDS: LEVOFLOXACIN 750MG-D5W PMX 750 MG in DEXTROSE/WATER 1 150ML.BAG IVPB SCH (08:54)
[2017-07-15] MEDS: ENOXAPARIN 40 MG/0.4 ML SYRINGE SQ SCH (08:54)
[2017-07-15] MEDS: CALCIUM CARB-VIT D 500MG-200UN 1 EACH TAB PO SCH ×2 (08:55→20:28)
[2017-07-15] MEDS: DULoxetine HCL 60 MG CAPSULE.DR PO SCH (08:55)
[2017-07-15 08:57] LABS: Creatine Kinase <20 U/L (30-135); Uric Acid 3.1 mg/dL (3.7-7.4)
[2017-07-15] MEDS: HYDROcodone/APAP 10-325MG 1 EACH TAB PO PRN ×2 (10:00→20:31)
[2017-07-15] MEDS: VIT A,C & E-LUTEIN-MINERALS 1 EACH TAB PO SCH (11:58)
[2017-07-15] MEDS: Acetaminophen-Codeine 300-30mg TAB PO PRN ×3 (12:03→21:35)
--- NOTE | 2017-07-15 15:20 | P.PN ---
Subjective This Is a 71-year-old pleasant lady patient of Dr. Perry munoz underlying history of hyperlipidemia o osteoarthritis GERD restless leg syndrome, admitted to the hospital secondary to acute onset generalized joint pains first involving the foot and ankles then bilateral knees, bilateral hips shoulders and wrists, is also accompanied by fever 100.9, patient denies any nausea no vomiting, no new medications or recent foreign travels, patient took Motrin for her restless leg and no cold for her arthritis pain however this is a new type of pain that she had secondary to generalized involvement of large joints, she also swelling and effusion of the right foot, patient denies any localized motor weakness significant for symptoms to include Guillaine- Darnell. The patient was not diagnosed to have rheumatoid arthritis in the past nor did she have any gout, no previous history of Lyme patient has significant pain in such a way that she cannot bear weight based on the significant pain on the right side. Patient has neck pain and back pain, or other extremity pain as well Emergency room she was evaluated however she was found to have pyuria with urinalysis and x-ray of the foot failed to reveal any fractures however she does have severe midfoot osteoarthritis, WBC was 9.4 creatinine 0.6 patient was admitted secondary to the fever and polyarthritis, urinary tract infection underlying early developing sepsis cannot be excluded she was started on IV Rocephin patient remains to be hemodynamically stable 07/15: Blood culture showing no growth. Urine culture is in progress. Temperature has been low at 96.3. Patient states her joint pain is better today. Physical therapy added. Lyme testing ordered as patient was recently exposed to a tick. Objective - Vital Signs Vital signs: Vital Signs Temp 96.8 F L 07/15/17 07:00 Pulse 68 07/15/17 07:00 Resp 18 07/15/17 07:00 BP 131/75 07/15/17 07:00 Pulse Ox 97 07/15/17 07:00 Intake & Output 07/14/17 07/15/17 07/15/17 18:59 06:59 18:59 Intake Total 0 500 Balance 0 500 Intake: Intake, IV Titration 0 Amount Sodium Chloride 0.9% 500 0 ml @ 1000 mls/hr IV Q35M MAXI Rx#:[id number] Oral 500 Other: # Voids 3 1 # Bowel Movements 0 - Exam General appearance: cooperative, no acute distress - EENT Eyes: anicteric sclerae, EOMI, PERRLA ENT: NA/AT, normal oropharynx - Neck Neck: no lymphadenopathy, normal ROM, no other, no rigidity, no stridor, no thyromegaly Thyroid: bilateral: normal size - Respiratory Respiratory: bilateral: CTA, diminished - Cardiovascular Rhythm: regular Heart sounds: normal: S1, S2 Abnormal Heart Sounds: no systolic murmur, no diastolic murmur, no rub, no S3 Gallop, no S4 Gallop, no click, no other - Gastrointestinal General gastrointestinal: normal bowel sounds, soft - Integumentary Integumentary: normal, normal turgor - Neurologic Neurologic: CNII-XII intact - Musculoskeletal Musculoskeletal: gait normal, strength equal bilaterally - Psychiatric Psychiatric: A&O x's 3, intact judgment & insight - Labs CBC & Chem 7: 07/14/17 01:33 07/14/17 01:33 Labs: Abnormal Lab Results - Last 24 Hours (Table) 07/15/17 Range/Units 08:08 Uric Acid 3.1 L (3.7-7.4) mg/dL Creatine Kinase <20 L (30-135) U/L Microbiology - Last 24 Hours (Table) 07/14/17 01:33 Blood Culture - Preliminary Blood No Growth after 24 hours 07/14/17 02:08 Urine Culture - Preliminary Urine,Voided Assessment and Plan Plan: 1. Acute febrile illness with polyarthritis symmetrical joint involvement along with pyuria, out to immune arthritis cannot be ruled out including new onset chest arthritis, patient would be given IV antibiotics for urinary tract infection, early sepsis is entertained, monitor for hemodynamic compensation along with bacteremia, patient is on IV Levaquin. Blood cultures are pending, 2. Acute polyarthritis symmetrical in distribution, a cannot be ruled out, she would have an RAYMUNDO and a and a CCP sed rate will be obtained, along with Crystal bone disease, uric acid calcium levels normal will be obtained. Patient was given 3 doses of Solu-Medrol 60 mg every 6 hours, would consult physical therapy and a serum protein electrophoresis 3. Hyperlipidemia 4. Inability to ambulate with foot deformities acute, physical therapy will be seeing her 5. Hyperlipidemia on Vytorin X 6. Restless leg on the. No 2 mg 3 times a day 7. DVT prophylaxis with mechanical as well as pharmacological treatments, patient's high risk 8. GI prophylaxis, on Protonix expected length of stay 2 nights anticipate home therapies Discharge plan: Return home Impression and plan of care have been directed as dictated by the signing physician. Nohemy Barros nurse practitioner acting as scribe for signing physician.
[2017-07-15 16:26] VITALS: RESP 16
[2017-07-15] MEDS: IBUPROFEN 600 MG TAB PO PRN (16:31)
[2017-07-15 20:02] LABS: ANA w/Reflex to Titer NEGATIVE (NEGATIVE); Cyclic Citrull Pep IgG Unit <0.5 U/mL; Cyclic Citrullinated Pep IgG NEGATIVE (NEGATIVE)
[2017-07-15] MEDS: ASPIRIN 81 MG CHEW PO SCH (20:26)
[2017-07-15] MEDS: EZETIMIBE 10 MG TAB PO SCH (20:26)
[2017-07-15] MEDS: ATORVASTATIN 10 MG TAB PO SCH (20:27)
[2017-07-16 08:07] VITALS: BP 136/95; PULSE 68; TEMP 97.6
[2017-07-16] MEDS: IBUPROFEN 600 MG TAB PO PRN (08:31)
[2017-07-16] MEDS: ENOXAPARIN 40 MG/0.4 ML SYRINGE SQ SCH (08:31)
[2017-07-16] MEDS: LEVOFLOXACIN 750MG-D5W PMX 750 MG in DEXTROSE/WATER 1 150ML.BAG IVPB SCH (08:31)
[2017-07-16] MEDS: Acetaminophen-Codeine 300-30mg TAB PO PRN (08:32)
[2017-07-16] MEDS: CALCIUM CARB-VIT D 500MG-200UN 1 EACH TAB PO SCH (08:33)
[2017-07-16] MEDS: DULoxetine HCL 60 MG CAPSULE.DR PO SCH (08:33)
[2017-07-16] MEDS: HYDROcodone/APAP 10-325MG 1 EACH TAB PO PRN (10:52)
[2017-07-16 11:22] LABS: Lyme IgG/IgM Interp NEGATIVE (NEGATIVE)
[2017-07-16] MEDS: VIT A,C & E-LUTEIN-MINERALS 1 EACH TAB PO SCH (13:17)
--- NOTE | 2017-07-16 14:45 | P.DS ---
Providers Date of admission: 07/14/17 05:27 Expected date of discharge: 07/16/17 Attending physician: Sarah Gonzalez Primary care physician: Cale Amador [facility] Course: This Is a 71-year-old pleasant lady patient of Dr. Amador chest underlying history of hyperlipidemia o osteoarthritis GERD restless leg syndrome, admitted to the hospital secondary to acute onset generalized joint pains first involving the foot and ankles then bilateral knees, bilateral hips shoulders and wrists, is also accompanied by fever 100.9, patient denies any nausea no vomiting, no new medications or recent foreign travels, patient took Motrin for her restless leg and no cold for her arthritis pain however this is a new type of pain that she had secondary to generalized involvement of large joints, she also swelling and effusion of the right foot, patient denies any localized motor weakness significant for symptoms to include Guillaine- Darnell. The patient was not diagnosed to have rheumatoid arthritis in the past nor did she have any gout, no previous history of Lyme patient has significant pain in such a way that she cannot bear weight based on the significant pain on the right side. Patient has neck pain and back pain, or other extremity pain as well Emergency room she was evaluated however she was found to have pyuria with urinalysis and x-ray of the foot failed to reveal any fractures however she does have severe midfoot osteoarthritis, WBC was 9.4 creatinine 0.6 patient was admitted secondary to the fever and polyarthritis, urinary tract infection underlying early developing sepsis cannot be excluded she was started on IV Rocephin patient remains to be hemodynamically stable 07/15: Blood culture showing no growth. Urine culture is in progress. Temperature has been low at 96.3. Patient states her joint pain is better today. Physical therapy added. Lyme testing ordered as patient was recently exposed to a tick. 07/16: CCP, RAYMUNDO, Lyme testing came back negative. Patient should have repeat Lyme testing in mid-July. Renal ultrasound is negative. Urine culture showing 50,000-100,000 colonies of genital nancy. Blood culture shows no growth at 48 hours. Patient will be placed on doxycycline for recent tick exposure. Patient started on prednisone taper for joint swelling and pain which is significantly improved since admission. Patient will be discharged home today in stable condition. Discharge diagnoses: 1. Acute febrile illness with polyarthritis symmetrical joint involvement along with pyuria, autoimmune arthritis ruled out, Lyme testing to be repeated in July 2. Acute polyarthritis symmetrical in distribution 3. Hyperlipidemia 4. Inability to ambulate with foot deformities acute 5. Hyperlipidemia 6. Restless leg Discharge plan: Return home Impression and plan of care have been directed as dictated by the signing physician. Nohemy Barros nurse practitioner acting as scribe for signing physician. Patient Condition at Discharge: Good Plan - Discharge Summary New Discharge Prescriptions: New Doxycycline Hyclate 100 mg PO BID #28 tab predniSONE 40 mg PO DAILY #18 tab Continue Pantoprazole Sodium [Protonix] 40 mg PO BID PRN PRN Reason: Heartburn Ibuprofen [Motrin] 600 mg PO TID PRN PRN Reason: Pain Ezetimibe/Simvastatin [Vytorin 10-20 mg Tablet] 1 tab PO DAILY Aspirin 81 mg PO DAILY Vit A,C & E/Lutein/Minerals [Ocuvite with Lutein Tablet] 1 tab PO DAILY Calcium Citrate/Vitamin D3 [Calcium Citrate - Vit D3 Tab] 1 tab PO BID DULoxetine HCL [Cymbalta] 60 mg PO DAILY rOPINIRole HCL [Requip] 2 mg PO TID HYDROcodone/APAP 10-325MG [[place] 10-325] 1 tab PO BID Discharge Medication List Aspirin 81 mg PO DAILY 06/11/14 [History] Calcium Citrate/Vitamin D3 [Calcium Citrate - Vit D3 Tab] 1 tab PO BID 06/11/14 [History] Ezetimibe/Simvastatin [Vytorin 10-20 mg Tablet] 1 tab PO DAILY 06/11/14 [History ] Ibuprofen [Motrin] 600 mg PO TID PRN 06/11/14 [History] Pantoprazole Sodium [Protonix] 40 mg PO BID PRN 06/11/14 [History] Vit A,C & E/Lutein/Minerals [Ocuvite with Lutein Tablet] 1 tab PO DAILY [History] DULoxetine HCL [Cymbalta] 60 mg PO DAILY 02/10/17 [History] rOPINIRole HCL [Requip] 2 mg PO TID 02/10/17 [History] HYDROcodone/APAP 10-325MG [[place] 10-325] 1 tab PO BID 07/14/17 [History] Doxycycline Hyclate 100 mg PO BID #28 tab 07/16/17 [Rx] predniSONE 40 mg PO DAILY #18 tab 07/16/17 [Rx] Follow up Appointment(s)/Referral(s): Cale Amador MD [Primary Care Provider] - 07/19/17 9:30 am (Hetal Zuniga NP will see you.) Patient Instructions/Handouts: Urinary Tract Infection in Women (DC) Activity/Diet/Wound Care/Special Instructions: Low fat diet. Discharge Disposition: HOME SELF-CARE
== END 2017-07-16 13:15 | disposition home or self-care (01) | DRG 554 ==
LOC: EC 01:11 → 4MS4W 05:27
PROVIDERS: ADMIT Family Medicine; ATTEND Family Medicine
DX: M13.0 Polyarthritis, unspecified (principal); E78.5 Hyperlipidemia, unspecified; G25.81 Restless legs syndrome; Z96.653 Presence of artificial knee joint, bilateral; K21.9 Gastro-esophageal reflux disease without esophagitis; Z79.82 Long term (current) use of aspirin; Z80.6 Family history of leukemia
CPT/HCPCS: 36415; 71020; 76770; 80053; 81001; 82550; 82553; 83605; 84165; 84484; 84550; 85025; 85610; 85652; 85730; 86038; 86140; 86200; 86618; 87040; 87086; 93005; 94760; 96361; 96374; 99285

== ENCOUNTER → 2017-09-20 | Outpatient (CLI) | payer MEDICARE, BC ==
[2017-09-20 08:14] LABS: ALT 37 U/L (9-52); AST 30 U/L (14-36); Alkaline Phosphatase 55 U/L (38-126); Anion Gap 5 mmol/L; Basophils % (A) 1 %; Blood Urea Nitrogen 16 mg/dL (7-17); CH 32.9; Calcium 9.4 mg/dL (8.4-10.2); Carbon Dioxide 31 mmol/L (22-30); Chloride 104 mmol/L (98-107); Cholesterol 171 mg/dL (<200); Eosinophils # (A) 0.3 k/uL (0-0.7); Eosinophils % (A) 7 %; Glucose 94 mg/dL (74-99); HCT 39.2 % (34.0-46.0); HDL Cholesterol 74 mg/dL (40-60); HDW 2.51; HGB 12.2 gm/dL (11.4-16.0); Luc # (Auto) 0.11; Luc % (Auto) 3; Lymphocytes # (A) 1.1 k/uL (1.0-4.8); Lymphocytes % (A) 28 %; MCH 31.2 pg (25.0-35.0); MCHC 31.1 g/dL (31.0-37.0); MCV 100.3 fL (80.0-100.0); Magnesium 1.9 mg/dL (1.6-2.3); Mean Platelet Volume 7.6; Monocytes # (A) 0.4 k/uL (0-1.0); Monocytes % (A) 9 %; Neutrophils # (A) 2.1 k/uL (1.3-7.7); Neutrophils % (A) 51 %; Non-African American GFR(MDRD) >60 (>60 ml/min/1.73 sqM); Potassium 4.4 mmol/L (3.5-5.1); RBC 3.91 m/uL (3.80-5.40); RDW 13.6 % (11.5-15.5); Sodium 140 mmol/L (137-145); Total Bilirubin 0.6 mg/dL (0.2-1.3); Total Protein 5.9 g/dL (6.3-8.2)
[2017-09-20 10:50] LABS: Hemoglobin A1C 5.9 % (4.2-6.1)
== END | disposition home or self-care (01) ==
LOC: LABWHC1 07:07
PROVIDERS: ATTEND Nurse Practitioner Family
DX: E78.00 Pure hypercholesterolemia, unspecified (principal); I10 Essential (primary) hypertension; R73.9 Hyperglycemia, unspecified; R00.1 Bradycardia, unspecified
CPT/HCPCS: 36415; 80053; 80061; 83036; 83735; 84439; 84443; 85025

== ENCOUNTER 2017-12-02 00:10 | Emergency (ER) | payer MEDICARE, BC ==
[2017-12-02] MEDS ORDERED: IBUPROFEN 600 MG STARTER PACK 4 TAB BTL PO STA (00:44)
--- NOTE | 2017-12-02 00:48 | ED ---
General Adult HPI - General Source: patient, family, RN notes reviewed Mode of arrival: ambulatory Limitations: no limitations <Cristhian Conroy - Last Filed: 12/02/17 00:45> <Ham Cook - Last Filed: 12/02/17 02:08> - General Chief complaint: Fever Stated complaint: weakness/joint pain Time Seen by Provider: 12/02/17 00:30 - History of Present Illness Initial comments: Chief complaint and history of present illness this is a 72-year-old female here with her . The patient reports after taking a warm bath tonight she started having muscle aches and pains realize she had a fever of 101.2. She also complains of joint pain. The patient did get her flu shot this year. ( Cristhina Conroy) - Related Data Home Medications Medication Instructions Recorded Confirmed Aspirin 81 mg PO DAILY 06/11/14 07/14/17 Calcium Citrate/Vitamin D3 1 tab PO BID 06/11/14 07/14/17 [Calcium Citrate - Vit D3 Tab] Ezetimibe/Simvastatin [Vytorin 1 tab PO DAILY 06/11/14 07/14/17 10-20 mg Tablet] Ibuprofen [Motrin] 600 mg PO TID PRN 06/11/14 07/14/17 Pantoprazole Sodium [Protonix] 40 mg PO BID PRN 06/11/14 07/14/17 Vit A,C & E/Lutein/Minerals 1 tab PO DAILY 06/11/14 07/14/17 [Ocuvite with Lutein Tablet] DULoxetine HCL [Cymbalta] 60 mg PO DAILY 02/10/17 07/14/17 rOPINIRole HCL [Requip] 2 mg PO TID 02/10/17 07/14/17 HYDROcodone/APAP 10-325MG [[place] 1 tab PO BID 07/14/17 07/14/17 10-325] Previous Rx's Medication Instructions Recorded Doxycycline Hyclate 100 mg PO BID #28 tab 07/16/17 predniSONE 40 mg PO DAILY #18 tab 07/16/17 Allergies Allergy/AdvReac Type Severity Reaction Status Date / Time meperidine [From Demerol] Allergy Unknown Verified 12/02/17 00:29 Review of Systems ROS Other: All systems not noted in ROS Statement are negative. <Cristhian Conroy - Last Filed: 12/02/17 00:45> ROS Other: All systems not noted in ROS Statement are negative. <Ham Cook - Last Filed: 12/02/17 02:08> ROS Statement: Those systems with pertinent positive or pertinent negative responses have been documented in the HPI. review of systems. No headache no stiff neck she is being treated with amoxicillin for right ankle abscess and that significantly improved per patient and her . No chest pain or shortness of breath no cough. No nausea no vomiting diarrhea. No rashes. All systems reviewed. Past medical problems significant for GERD, history of UTIs, history also speaks of polyarthralgia.Hyperlipidemia, osteoarthritis restless leg syndrome. The patient said that breast surgery for lumpectomy. Heart catheterization without stenting. She's had inguinal hernia repair, total hysterectomy, 2 total knee surgeries and right foot hammertoe repair. She 's had 2 siblings 1 of leukemia the other unknown. The patient has ALLERGIES to Demerol. She does not smoke and she drinks wine occasionally. ( Cristhian Conroy) Past Medical History Past Medical History: GERD/Reflux, Hyperlipidemia, Osteoarthritis (OA) Additional Past Medical History / Comment(s): RESTLESS LEG SYNDROME, History of Any Multi-Drug Resistant Organisms: None Reported Past Surgical History: Breast Surgery, Heart Catheterization, Hernia Repair, Hysterectomy, Joint Replacement, Orthopedic Surgery Additional Past Surgical History / Comment(s): RIGHT FOOT HAMMER TOE, harsh bunionectomy, harsh BREAST REDUCTION, HARSH KNEE REPLACEMENT Past Anesthesia/Blood Transfusion Reactions: No Reported Reaction Past Psychological History: Depression Smoking Status: Never smoker Past Alcohol Use History: Occasional Past Drug Use History: None Reported - Past Family History Mother Family Medical History: Cancer Additional Family Medical History / Comment(s): ovarian Brother(s) Family Medical History: Cancer, Deep Vein Thrombosis (DVT) Additional Family Medical History / Comment(s): LEUKEMIA Sister(s) Family Medical History: Cancer, Deep Vein Thrombosis (DVT) Additional Family Medical History / Comment(s): 3 SISTERS HAD DVT <Cristhian Conroy - Last Filed: 12/02/17 00:45> General Exam Limitations: no limitations <Cristhian Conroy - Last Filed: 12/02/17 00:45> General appearance: alert, in no apparent distress Head exam: Present: atraumatic, normocephalic, normal inspection Eye exam: Present: normal appearance, PERRL, EOMI. Absent: scleral icterus, conjunctival injection, periorbital swelling ENT exam: Present: normal exam, mucous membranes moist Neck exam: Present: normal inspection. Absent: tenderness, meningismus, lymphadenopathy Respiratory exam: Present: normal lung sounds bilaterally. Absent: respiratory distress, wheezes, rales, rhonchi, stridor Cardiovascular Exam: Present: regular rate, normal rhythm, normal heart sounds. Absent: systolic murmur, diastolic murmur, rubs, gallop, clicks GI/Abdominal exam: Present: soft, normal bowel sounds. Absent: distended, tenderness, guarding, rebound, rigid Extremities exam: Present: normal inspection, full ROM, normal capillary refill. Absent: tenderness, pedal edema, joint swelling, calf tenderness Back exam: Present: normal inspection Neurological exam: Present: alert, oriented X3, CN II-XII intact Psychiatric exam: Present: normal affect, normal mood Skin exam: Present: warm, dry, intact, normal color. Absent: rash <Ham Cook - Last Filed: 12/02/17 02:08> - General Exam Comments Initial Comments: General: The patient is awake and alert, complaining of joint discomfort as well as muscle aches and pains and fever. Vital signs shows temperature 101.2 4 received ibuprofen. Pulse 104 respiratory rate 18 pulse ox 97% room air blood pressure 139/78 Eye: Pupils are equal, round and reactive to light, extra-ocular movements are intact ; there is normal conjunctiva bilaterally. No signs of icterus. Ears, nose, mouth and throat: There are moist mucous membranes and no oral lesions. Neck: The neck is supple, there is no tenderness , no anterior cervical lymphadenopathy, no meningeal irritation. Cardiovascular: There is a regular rate and rhythm. faint heart murmur appreciated over the precordium. Respiratory: Lungs are clear to auscultation, respirations are non-labored, breath sounds are equal. No wheezes, stridor, rales, or rhonchi. Gastrointestinal: Soft, non-distended, non-tender abdomen without masses or organomegaly noted. There is no rebound or guarding present. No CVA tenderness. Bowel sounds are unremarkable. Back: There is no tenderness to palpation in the midline. There is no obvious deformity. No rashes noted. mild low back pain. Musculoskeletal: Normal ROM, no tenderness, There is no pedal edema. There is no calf tenderness or swelling. Sensation intact. Pulses equal bilaterally 2+. Neurological: no neuro deficits. Skin: Skin is warm and dry and no rashes or lesions are noted. (Cristhian Conroy) Course <Cristhian Conroy - Last Filed: 12/02/17 00:45> <Ham Cook - Last Filed: 12/02/17 02:08> Vital Signs 12/02/17 00:25 Temperature 101.2 F H Pulse Rate 104 H Respiratory 18 Rate Blood Pressure 139/78 O2 Sat by Pulse 97 Oximetry - Reevaluation(s) Reevaluation #1: 12/02/17 02:07 Patient states her symptoms are improved, she is feeling better with Motrin, also given Tylenol, patient refusing any further pain medication. (Ham Cook) Medical Decision Making <Cristhian Conroy - Last Filed: 12/02/17 00:45> - Radiology Data Radiology results: report reviewed (Chest x-ray is negative), image reviewed <Ham Cook - Last Filed: 12/02/17 02:08> - Medical Decision Making 72 female to ER for evaluation of fever. Patient is on amoxicillin for tooth infection, patient will continue amoxicillin, take Motrin, for pain. X-ray flue and urine are negative at this time. Patient states she is feeling better and okay for discharge home (Ham Cook) - Lab Data Lab Results 12/02/17 12/02/17 Range/Units 00:56 01:00 Urine Color Yellow Urine Appearance Clear (Clear) Urine pH 7.0 (5.0-8.0) Ur Specific [place] 1.014 (1.001-1.035) Urine Protein Negative (Negative) Urine Glucose (UA) Negative (Negative) Urine Ketones Negative (Negative) Urine Blood Negative (Negative) Urine Nitrite Negative (Negative) Urine Bilirubin Negative (Negative) Urine Urobilinogen <2.0 (<2.0) mg/dL Ur Leukocyte Esterase Negative (Negative) Influenza Type A RNA Not Detected (Not Detectd) Influenza Type B (PCR) Not Detected (Not Detectd) Disposition <Cristhian Conroy - Last Filed: 12/02/17 00:45> <Ham Cook - Last Filed: 12/02/17 02:08> Clinical Impression: Polyarthralgia, Viral infection, Fever Disposition: HOME SELF-CARE Condition: Good Instructions: Fever in Adults (ED) Referrals: Cale Amador MD [Primary Care Provider] - 1-2 days
[2017-12-02 01:15] LABS: Appearance,Urine Clear (Clear); Bilirubin,Urine Negative (Negative); Blood,Urine Negative (Negative); Color,Urine Yellow; Glucose,Urine (UA) Negative (Negative); Ketones,Urine Negative (Negative); Leukocyte Esterase,Urine Negative (Negative); Nitrite,Urine Negative (Negative); Protein,Urine Negative (Negative); Specific Gravity,Urine 1.014 (1.001-1.035); Urobilinogen,Urine <2.0 mg/dL (<2.0)
--- NOTE | 2017-12-02 01:35 | XR ---
EXAMINATION TYPE: XR chest 2V DATE OF EXAM: 12/02/2017 COMPARISON: 07/14/2017 HISTORY: Fever TECHNIQUE: Frontal and lateral views of the chest are obtained. FINDINGS: There is no heart failure nor confluent pneumonic infiltrate. Thoracic aorta is atheromato us. Costophrenic angles are clear. Bony thorax is intact. IMPRESSION: No active cardiopulmonary disease. Atheromatous aorta. No change.
[2017-12-02] MEDS ORDERED: ACETAMINOPHEN TAB 500 MG TAB PO STA (01:39)
[2017-12-02 16:25] VITALS: BP 153/63; PULSE 92; RESP 16; TEMP 99.5
== END 2017-12-02 02:24 | disposition home or self-care (01) ==
LOC: EC 00:10
DX: B34.9 Viral infection, unspecified (principal); M25.50 Pain in unspecified joint; M54.5 Low back pain; R50.9 Fever, unspecified; E78.5 Hyperlipidemia, unspecified; K21.9 Gastro-esophageal reflux disease without esophagitis; G25.81 Restless legs syndrome; M19.90 Unspecified osteoarthritis, unspecified site; F32.9 Major depressive disorder, single episode, unspecified; Z79.82 Long term (current) use of aspirin; Z79.899 Other long term (current) drug therapy; Z88.5 Allergy status to narcotic agent; Z96.653 Presence of artificial knee joint, bilateral
CPT/HCPCS: 71046; 81003; 87086; 87502; 99283

== ENCOUNTER → 2018-04-12 | Outpatient (CLI) | payer MEDICARE, BC ==
[2018-04-12 14:00] VITALS: BP 168/68; PULSE 76; TEMP 98.3; BMI 24.6
--- NOTE | 2018-04-12 14:35 | P.HPOB ---
History of Present Illness H&P Date: 04/12/18 Chief Complaint: The patient is here for her routine gynecologic exam and mammogram. This is a 72 year old with an LMP of 1990. She is status post [facility] for benign reasons. The patient is without gynecologic complaints. Her mammograms were previously done at [facility]. She is not aware of any abnormal mammograms in recent years. She would like to have her mammograms done here. Review of Systems She has gained 5 pounds over the last year. She denies respiratory, cardiac and G.I. problems. She denies maltreatment or problems with falling. : she denies any significant problems with urinary leakage. Past Medical History Past Medical History: Cancer (Basal cell skin cancer), GERD/Reflux, Hyperlipidemia, Osteoarthritis (OA) Additional Past Medical History / Comment(s): RESTLESS LEG SYNDROME, macular degeneration, and osteopenia . Past [employer] history: she has no history of STDs. She has a known grade 2 rectocele. History of Any Multi-Drug Resistant Organisms: None Reported Past Surgical History: Breast Surgery, Heart Catheterization, Hernia Repair, Hysterectomy, Joint Replacement, Orthopedic Surgery Additional Past Surgical History / Comment(s): RIGHT FOOT HAMMER TOE, harsh bunionectomy, harsh BREAST REDUCTION, HARSH KNEE REPLACEMENT Past Anesthesia/Blood Transfusion Reactions: No Reported Reaction Past Psychological History: Anxiety, Depression Smoking Status: Never smoker Past Alcohol Use History: Occasional (5 per week) Additional Past Alcohol Use History / Comment(s): . Past Drug Use History: None Reported Additional History: She has been since 1960. - Past Family History Mother Family Medical History: Cancer Additional Family Medical History / Comment(s): ovarian Brother(s) Family Medical History: Cancer, Deep Vein Thrombosis (DVT) Additional Family Medical History / Comment(s): LEUKEMIA Sister(s) Family Medical History: Cancer (Unknown type), Deep Vein Thrombosis (DVT) Additional Family Medical History / Comment(s): 3 SISTERS HAD DVT Medications and Allergies Home Medications Medication Instructions Recorded Confirmed Type Aspirin 81 mg PO DAILY 06/11/14 04/12/18 History Calcium Citrate/Vitamin D3 1 tab PO BID 06/11/14 04/12/18 History [Calcium Citrate - Vit D3 Tab] Ezetimibe/Simvastatin [Vytorin 1 tab PO HS 06/11/14 04/12/18 History 10-20 mg Tablet] Ibuprofen [Motrin] 600 mg PO TID PRN 06/11/14 04/12/18 History Pantoprazole Sodium [Protonix] 40 mg PO BID PRN 06/11/14 04/12/18 History Vit A,C & E/Lutein/Minerals 1 tab PO DAILY 06/11/14 04/12/18 History [Ocuvite with Lutein Tablet] DULoxetine HCL [Cymbalta] 60 mg PO DAILY 02/10/17 04/12/18 History rOPINIRole HCL [Requip] 2 mg PO TID 02/10/17 04/12/18 History HYDROcodone/APAP 10-325MG [[place] 1 tab PO BID 07/14/17 04/12/18 History 10-325] Allergies Allergy/AdvReac Type Severity Reaction Status Date / Time meperidine [From Demerol] Allergy Unknown Verified 04/12/18 13:51 Exam - Vital Signs Vital signs: Vital Signs Temp Pulse BP 04/12/18 13:54 98.3 F 76 168/68 Intake and Output 04/11/18 04/12/18 04/12/18 22:59 06:59 14:59 Other: Weight 63.049 kg Height 5'3", BMI 24.6. This is a well-developed well-nourished white female who is alert and oriented times 3 in no acute distress. HEENT: Within normal limits. NECK: Supple without mass or thyromegaly. CHEST AND LUNGS: Clear to auscultation. HEART: Regular rate and rhythm. BREASTS: Are without mass or discharge. Breasts are consistent with previous breast reduction surgery. AXILLARY EXAM: Negative for adenopathy. BACK: Negative for CVA tenderness. ABDOMEN: Soft, nontender, without palpable masses. PELVIC EXAM: External genitalia appears normal with mild to moderate atrophy. Vagina appears normal with mild to moderate atrophy. There is a grade 2 rectocele which is stable. Bimanual examination is negative for mass or tenderness. RECTAL EXAM: Rectovaginal exam is negative for mass or tenderness and is negative for occult blood and does confirm a small rectocele. EXTREMITIES: Nontender. IMPRESSION: 1. 72-year-old menopausal female status post MELISSA for benign reasons. 2. Stable grade 2 rectocele. This is asymptomatic. 3. Elevated blood pressure. 4. History of osteopenia. PLAN: 1. Pap smears have been discontinued. 2. Self breast awareness was discussed. 3. Screening mammogram will be done today. 4. Osteoporosis prevention was discussed. She will repeat her bone density test in one year. 5. I have recommended that she do home blood pressure checks on a regular basis. She will follow-up with Dr. Amador for blood pressure elevations. 6. She does get flu shots in the fall. 7. She will return in one year.
--- NOTE | 2018-04-14 11:14 | MM ---
Reason for exam: screening (asymptomatic). Last mammogram was performed 1 year and 1 month ago. History: Patient is postmenopausal. Excisional biopsy of the right breast. Took estrogen for 9 years. Physical Findings: A clinical breast exam by your physician is recommended on an annual basis and results should be correlated with mammographic findings. MG 3D Screening Mammo W/Cad Bilateral CC and MLO view(s) were taken. Prior study comparison: March 03, 2017, mammogram, performed at [facility]. December 25, 2015, mammogram, performed at [facility]. December 20, 2014, mammogram, performed at [facility]. December 13, 2013, mammogram, performed at [facility]. The breast tissue is heterogeneously dense. This may lower the sensitivity of mammography. Left global asymmetry upper outer quadrant unchanged. No significant changes when compared with prior studies. ASSESSMENT: Negative, BI-RAD 1 RECOMMENDATION: Routine screening mammogram of both breasts in 1 year.
== END | disposition home or self-care (01) ==
LOC: WWCWWP 13:14
PROVIDERS: ATTEND Obstetrics & Gynecology
DX: Z12.31 Encounter for screening mammogram for malignant neoplasm of breast (principal)
CPT/HCPCS: 77063; 77067

== ENCOUNTER → 2019-04-25 | Outpatient (CLI) | payer MEDICARE, BC ==
[2019-04-25 08:17] VITALS: BP 159/90; PULSE 58; RESP 18; TEMP 98.4; BMI 24.4
--- NOTE | 2019-04-25 08:57 | P.HPOB ---
History of Present Illness H&P Date: 04/25/19 Chief Complaint: The patient is here for her routine gynecologic exam and ma mmogram. This is a 73-year-old with an LMP of 1988. The patient is status post MELISSA for benign reasons. The patient is without gynecologic complaints. Review of Systems Weight has been stable. She denies respiratory or cardiac problems. G.I.: occasional heartburn. She will be discussing this with Dr. Amador She denies maltreatment or problems with falling. : she denies any significant problems with urinary leakage, but urinary stream is fairly slow Past Medical History Past Medical History: Cancer, GERD/Reflux, Hyperlipidemia, Osteoarthritis (OA) Additional Past Medical History / Comment(s): RESTLESS LEG SYNDROME, macular degeneration, and osteopenia. Basal cell skin cancer. Past [employer] history: she has no history of STDs. She has a known grade 2 rectocele. History of Any Multi-Drug Resistant Organisms: None Reported Past Surgical History: Breast Surgery, Heart Catheterization, Hernia Repair, Hysterectomy, Joint Replacement, Orthopedic Surgery Additional Past Surgical History / Comment(s): RIGHT FOOT HAMMER TOE, harsh bunionectomy, harsh BREAST REDUCTION, HARSH KNEE REPLACEMENT. Colonoscopy 2016(multiple in past). MELISSA with unilateral nephrectomy in 1988. Past Anesthesia/Blood Transfusion Reactions: No Reported Reaction Past Psychological History: Anxiety, Depression Smoking Status: Never smoker Past Alcohol Use History: Occasional (5-7 per week) Additional Past Alcohol Use History / Comment(s): . Past Drug Use History: None Reported Additional History: She has been since 1960. She is not sexually active. - Past Family History Mother Family Medical History: Cancer Additional Family Medical History / Comment(s): ovarian CA Brother(s) Family Medical History: Cancer, Deep Vein Thrombosis (DVT) Additional Family Medical History / Comment(s): LEUKEMIA Sister(s) Family Medical History: Cancer, Deep Vein Thrombosis (DVT) Additional Family Medical History / Comment(s): 3 SISTERS HAD DVT Medications and Allergies Home Medications Medication Instructions Recorded Confirmed Type Aspirin 81 mg PO DAILY 06/11/14 04/25/19 History Calcium Citrate/Vitamin D3 1 tab PO BID 06/11/14 04/25/19 History [Calcium Citrate - Vit D3 Tab] Ezetimibe/Simvastatin [Vytorin 1 tab PO HS 06/11/14 04/25/19 History 10-20 mg Tablet] Ibuprofen [Motrin] 600 mg PO TID PRN 06/11/14 04/25/19 History Vit A,C & E/Lutein/Minerals 1 tab PO DAILY 06/11/14 04/25/19 History [Ocuvite with Lutein Tablet] DULoxetine HCL [Cymbalta] 60 mg PO DAILY 02/10/17 04/25/19 History rOPINIRole HCL [Requip] 2 mg PO TID 02/10/17 04/25/19 History HYDROcodone/APAP 10-325MG [[place] 1 tab PO BID 07/14/17 04/25/19 History 10-325] Allergies Allergy/AdvReac Type Severity Reaction Status Date / Time meperidine [From Demerol] Allergy Unknown Verified 04/25/19 08:17 Exam Vital Signs Temp Pulse Resp BP Pulse Ox 04/25/19 08:08 98.4 F 58 L 18 159/90 98 Intake and Output 04/24/19 04/25/19 04/25/19 22:59 06:59 14:59 Other: Weight 62.596 kg Height 5'3", weight 138 pounds, BMI 24.4. This is a well-developed well-nourished white female who is alert and oriented times 3 in no acute distress. HEENT: Within normal limits. NECK: Supple without mass or thyromegaly. CHEST AND LUNGS: Clear to auscultation. HEART: Regular rate and rhythm. BREASTS: Are without mass or discharge. There is bilateral central nipple inversion which the patient states she has had for many years. AXILLARY EXAM: Negative for adenopathy. BACK: Negative for CVA tenderness. ABDOMEN: Soft, nontender, without palpable masses. PELVIC EXAM: External genitalia appears normal with moderate atrophy. Vagina appears normal is moderate atrophy. There is a stable grade to rectocele. Bimanual examination is negative for mass or tenderness. RECTAL EXAM: Rectovaginal exam is negative for mass or tenderness and is negative for occult blood. Rectal exam confirms a small rectocele. EXTREMITIES: Nontender. IMPRESSION: 1. 73-year-old menopausal female status post MELISSA for benign reasons. 2. Stable grade 2 rectocele which is asymptomatic. 3. History of osteopenia. 4. Elevated blood pressure not taking any blood pressure medication. PLAN: 1. Pap smears have been discontinued. 2. Self breast awareness was discussed with the patient. 3. Screening mammogram will be done today. 4. Her grade 2 rectocele will be followed conservatively. 5. We discussed her elevated blood pressure. She states she has the ability to do home blood pressure checks. I have recommended that she do this on a daily basis. She will follow-up with Dr. riddle for blood pressure elevations and will let him know that today's blood pressure was elevated. 6.Osteoporosis prevention was discussed. I have stressed the importance of adequate calcium, vitamin D and regular exercise. Recommended amounts of calcium and vitamin D were also discussed. I have recommended repeating bone density testing. She would like to have the bone density testing repeated next year. 7. She does get flu shots in the fall. 8.She was advised to return in one year for her annual well woman exam.
--- NOTE | 2019-04-27 10:26 | MM ---
Reason for exam: screening (asymptomatic). Last mammogram was performed 1 year ago. History: Patient is postmenopausal. Excisional biopsy of the right breast. Took estrogen for 9 years. Physical Findings: A clinical breast exam by your physician is recommended on an annual basis and results should be correlated with mammographic findings. MG 3D Screening Mammo W/Cad Bilateral CC and MLO view(s) were taken. Prior study comparison: April 12, 2018, bilateral MG 3d screening mammo w/cad. March 03, 2017, mammogram, performed at [facility]. The breast tissue is heterogeneously dense. This may lower the sensitivity of mammography. No significant changes when compared with prior studies. ASSESSMENT: Benign, BI-RAD 2 RECOMMENDATION: Routine screening mammogram of both breasts in 1 year.
== END ==
LOC: WWCWWP 07:58
PROVIDERS: ATTEND Obstetrics & Gynecology
DX: Z12.31 Encounter for screening mammogram for malignant neoplasm of breast (principal)
CPT/HCPCS: 77063; 77067

== ENCOUNTER → 2019-06-20 | Outpatient (CLI) | payer MEDICARE, BC ==
[2019-06-20 18:59] LABS: Iron Saturation 27.19 (12.00-45.00)
== END | disposition home or self-care (01) ==
LOC: LABWHC1 12:50
PROVIDERS: ATTEND Nurse Practitioner Acute Care
DX: G25.81 Restless legs syndrome (principal)
CPT/HCPCS: 36415; 83540; 83550; 84466

== ENCOUNTER → 2020-04-02 | Outpatient (CLI) | payer MEDICARE, BC ==
[2020-04-02 09:12] VITALS: BP 157/75; PULSE 73; RESP 18; TEMP 98.3
--- NOTE | 2020-04-02 10:08 | P.PN ---
Progress Note - Text Progress Note Date: 04/02/20 Chief Complaint: Slight bulge at the vaginal opening for 6 weeks. HPI: This is a 74-year-old 013 with an LMP of 1988. She is status post MELISSA for benign reasons. She states she occasionally noticed a slight bulge at the vaginal opening during the past 6 weeks. She denies seeing anything protruding from the vaginal opening. She denies pain, but has noticed some vulvar pruritus during these 6 weeks. She denies vaginal discharge or vaginal odor. She has used Vagisil occasionally which seems to help with the itching. She has noticed that it is occasionally difficult to hold the stool. She moves her bowels regularly. She states urination is not a problem but is a bit slower. She has not had a significant problems with urinary leakage. ROS: Respiratory she has had some sinus issues. She denies cardiac or GI problems. PE: Blood pressure: 157/75, Height: 5 feet 2-1/2 inches, Weight: 144 pounds, Temperature: 98.3, Pulse: 73. Pulse oximeter 100%. This is a well developed, well nourished, white female who is alert and orientedx3, in no acute distress. Abdomen: Soft and nondistended and nontender. Pelvic exam: External genitalia reveals mild atrophy without lesions. There is no significant erythema. With Valsalva, a slight bulge approaches the introitus. The vagina appears normal with mild to moderate atrophy. There are no vaginal lesions. The vaginal mucosa appears normal without significant thickening or excoriation. The vaginal cuff is well supported. There is a grade 2 rectocele at rest. There is no significant cystocele. With Valsalva, there is a grade 2-3 rectocele. Bimanual examination reveals a mild rectal prolapse as above. There are no pelvic masses. Rectovaginal exam: There are no masses. This confirms a rectocele with a suggestion of a slight enterocele above the rectocele. Impression: 1. 74-year-old menopausal female status post MELISSA with grade 2-3 rectocele. The rectocele is minimally symptomatic 2. Nonspecific vulvar pruritus. I doubt that this is directly related to the cystocele. Plan: 1. We have had a long discussion regarding the rectocele. We have discussed options including surgery which I do not think is necessary at this time. She is to avoid heavy repetitive lifting, bearing down and chronic coughing. She will do negative Valsalva exercises when she feels the bulge and also recommended that she do this prior to voiding. Instructions were given to her for this. She was instructed to call if she is having increasing symptoms or noticing an increase in the bulge. 2. I recommended that she avoid over washing the vulva. She is also to pay attention to what comes in contact with her vulva such as new toilet paper, new laundry detergent and fabric softeners. A prescription for Kenalog 0.1% cream will be sent electronically to [facility] pharmacy on [address]. She will use this twice a day when necessary. 3. She will return in approximately one year for her well woman examination. She will also return as needed. Time spent with the patient: 25 minutes
== END | disposition home or self-care (01) ==
LOC: WWCWWP 09:00
PROVIDERS: ATTEND Obstetrics & Gynecology
DX: Z53.9 Procedure and treatment not carried out, unspecified reason (principal)

== ENCOUNTER → 2020-06-10 | Outpatient (CLI) | payer MEDICARE, BC ==
--- NOTE | 2020-06-12 11:06 | MM ---
Reason for exam: screening (asymptomatic). Last mammogram was performed 1 year and 2 months ago. History: Patient is postmenopausal. Excisional biopsy of the right breast. Took estrogen for 9 years. Physical Findings: A clinical breast exam by your physician is recommended on an annual basis and results should be correlated with mammographic findings. MG 3D Screening Mammo W/Cad Bilateral CC and MLO view(s) were taken. Prior study comparison: April 25, 2019, bilateral MG 3d screening mammo w/cad. April 12, 2018, bilateral MG 3d screening mammo w/cad. The breast tissue is heterogeneously dense. This may lower the sensitivity of mammography. No significant changes when compared with prior studies. ASSESSMENT: Benign, BI-RAD 2 RECOMMENDATION: Routine screening mammogram of both breasts in 1 year.
== END | disposition home or self-care (01) ==
LOC: RADMAMWWP 11:19
PROVIDERS: ATTEND Internal Medicine Geriatric Medicine
DX: Z12.31 Encounter for screening mammogram for malignant neoplasm of breast (principal)
CPT/HCPCS: 77063; 77067

== ENCOUNTER → 2021-06-17 | Outpatient (CLI) | payer MEDICARE, BC ==
[2021-06-17 08:20] VITALS: BP 206/98; PULSE 80; RESP 16; TEMP 98.3
--- NOTE | 2021-06-17 11:12 | P.HPOB ---
History of Present Illness H&P Date: 06/17/21 Chief Complaint: The patient is here for her routine gynecologic exam and ma mmogram. This is a 75-year-old with an LMP of 1988. The patient is status post MELISSA for benign reasons. The patient states she has been experiencing more problems with her known rectocele. She states when she urinates the stream can be "all over the place". She also can have some issues with loss of small formed stool. She feels like there is a bulge that comes to the opening of the vagina. This is becoming more problematic for her and would like to look into surgical correction. She has otherwise without gynecologic complaints. Review of Systems She has lost about 7 pounds over the past year. She denies respiratory, cardiac and G.I. problems. She denies maltreatment or problems with falling. : She has been having some urinary issues including the need to get to the bathroom right away at times. She has also noticed that the stream seems more scattered than usual. See the HPI. She has also noticed occasional slight stool incontinence. Past Medical History Past Medical History: Cancer, GERD/Reflux, Hyperlipidemia, Osteoarthritis (OA) Additional Past Medical History / Comment(s): RESTLESS LEG SYNDROME, macular degeneration, and osteopenia. Basal cell skin cancer. Past [employer] history: she has no history of STDs. She has a known grade 2-3 rectocele. History of Any Multi-Drug Resistant Organisms: None Reported Past Surgical History: Breast Surgery, Heart Catheterization, Hernia Repair, Hysterectomy, Joint Replacement, Orthopedic Surgery Additional Past Surgical History / Comment(s): Left shoulder surgery, RIGHT FOOT HAMMER TOE, harsh bunionectomy, harsh BREAST REDUCTION, HARSH KNEE REPLACEMENT. Colonoscopy 2016(multiple in past). MELISSA with unilateral nephrectomy in 1988. Past Anesthesia/Blood Transfusion Reactions: No Reported Reaction Past Psychological History: Anxiety, Depression Smoking Status: Never smoker Past Alcohol Use History: Daily (One per day) Additional Past Alcohol Use History / Comment(s): . Past Drug Use History: None Reported Additional History: She has been since 1960 and is not sexually active. - Past Family History Mother Family Medical History: Cancer Additional Family Medical History / Comment(s): ovarian CA Brother(s) Family Medical History: Cancer, Deep Vein Thrombosis (DVT) Additional Family Medical History / Comment(s): LEUKEMIA Sister(s) Family Medical History: Cancer, Deep Vein Thrombosis (DVT) Additional Family Medical History / Comment(s): 3 SISTERS HAD DVT Medications and Allergies Home Medications Medication Instructions Recorded Confirmed Type Aspirin 81 mg PO DAILY 06/11/14 06/17/21 History Ezetimibe/Simvastatin [Vytorin 1 tab PO HS 06/11/14 06/17/21 History 10-20 mg Tablet] Vit A,C & E/Lutein/Minerals 1 tab PO DAILY 06/11/14 06/17/21 History [Ocuvite with Lutein Tablet] DULoxetine HCL [Cymbalta] 60 mg PO DAILY 02/10/17 06/17/21 History Multivitamin [Multivitamins Adult 1 each PO DAILY 04/02/20 06/17/21 History Gummies] Pantoprazole Sodium [Protonix] 40 mg PO BID 04/02/20 06/17/21 History Triamcinolone 0.1% Cream [Kenalog 1 applicatio TOPICAL BID PRN #30 gm 04/02/20 Rx 0.1% Cream] HYDROcodone/APAP 10-325MG [[place] 1 PO DAILY 06/17/21 History 10-325] Pramipexole Di-HCl [Mirapex ER] 1.5 mg PO DAILY 06/17/21 06/17/21 History Allergies Allergy/AdvReac Type Severity Reaction Status Date / Time meperidine [From Demerol] Allergy Unknown Verified 06/17/21 08:06 Exam Vital Signs Temp Pulse Resp BP Pulse Ox 06/17/21 08:09 98.3 F 80 16 206/98 98 Intake and Output 06/16/21 06/17/21 06/17/21 22:59 06:59 14:59 Other: Weight 59.421 kg Repeat blood pressure in the right arm: 152/80. Height 5 feet 3 inches, weight 131 pounds, BMI 23.2. This is a well-developed well-nourished white female who is alert and oriented times 3 in no acute distress. HEENT: Within normal limits. NECK: Supple without mass or thyromegaly. CHEST AND LUNGS: Clear to auscultation. HEART: Regular rate and rhythm. BREASTS: Are without mass or discharge. There is bilateral central nipple inversion which the patient states she has had for many years. AXILLARY EXAM: Negative for adenopathy. BACK: Negative for CVA tenderness. ABDOMEN: Soft, nontender, without palpable masses. PELVIC EXAM: External genitalia appears normal with moderate atrophy. Vaginal mucosa appears normal with mild to moderate atrophy. There is a grade 2 rectocele noted at rest which increases to a grade 3 rectocele to the introitus with Valsalva. The mucosa overlying the rectocele does not appear inflamed, thickened or excoriated. The vaginal cuff feels fairly well supported with no evidence of significant enterocele. Bimanual examination is negative for mass or tenderness. RECTAL EXAM: Rectovaginal exam is negative for mass or tenderness and is negative for occult blood. The rectal exam does confirm a rectocele. EXTREMITIES: Nontender. IMPRESSION: 1. 75-year-old menopausal female who is status post MELISSA and unilateral oophorectomy for benign reasons, with symptomatic grade 2-3 rectocele. 2. Elevated blood pressure not on blood pressure medication. 3. History of osteopenia 4. Family history of ovarian cancer in her mother. PLAN: 1. Pap smears have been discontinued. 2. Self breast awareness was discussed with the patient. 3. Screening mammogram will be done today. 4. We have had a long discussion regarding her rectocele. Because she is symptomatic and this seems to have slightly increased from her prior exam, she will be referred to Dr. Gaytan for evaluation and possible surgical correction. She was instructed to avoid holding stool longer than necessary. 5. Osteoporosis prevention was discussed. I have stressed the importance of adequate calcium, vitamin D and regular exercise. Recommended amounts of calcium and vitamin D were also discussed. She is due for her bone density test in the order slip was given to the patient for this. 6. I have also recommended a pelvic ultrasound because of her family history of ovarian cancer in her mother. She states she would like to do this at the same time as her bone density test. 7. We have again discussed her elevated blood pressure. I have recommended that she check her blood pressure on a regular basis at least daily and to follow-up with Dr. Marie for blood pressure elevations. 8. She was advised to return in one year for her annual well woman exam.
--- NOTE | 2021-06-17 13:07 | MM ---
Reason for exam: screening (asymptomatic). Last mammogram was performed 1 year ago. History: Patient is postmenopausal. Excisional biopsy of the right breast. Took estrogen for 9 years. Physical Findings: A clinical breast exam by your physician is recommended on an annual basis and results should be correlated with mammographic findings. MG 3D Screening Mammo W/Cad Bilateral CC and MLO view(s) were taken. Prior study comparison: June 10, 2020, bilateral MG 3d screening mammo w/cad. April 25, 2019, bilateral MG 3d screening mammo w/cad. The breast tissue is heterogeneously dense. This may lower the sensitivity of mammography. ASSESSMENT: Negative, BI-RAD 1 RECOMMENDATION: Routine screening mammogram of both breasts in 1 year.
== END ==
LOC: WWCWWP 07:52
PROVIDERS: ATTEND Obstetrics & Gynecology
DX: Z12.31 Encounter for screening mammogram for malignant neoplasm of breast (principal); Z01.419 Encounter for gynecological examination (general) (routine) without abnormal findings; E78.5 Hyperlipidemia, unspecified; M19.90 Unspecified osteoarthritis, unspecified site; K21.9 Gastro-esophageal reflux disease without esophagitis; F41.9 Anxiety disorder, unspecified; N81.6 Rectocele; R03.0 Elevated blood-pressure reading, without diagnosis of hypertension; Z87.39 Personal history of other diseases of the musculoskeletal system and connective tissue; Z79.82 Long term (current) use of aspirin; Z85.828 Personal history of other malignant neoplasm of skin; Z88.5 Allergy status to narcotic agent; Z80.41 Family history of malignant neoplasm of ovary; Z78.0 Asymptomatic menopausal state; Z90.710 Acquired absence of both cervix and uterus
CPT/HCPCS: 77063; 77067

== ENCOUNTER → 2021-06-23 | Outpatient (CLI) | payer MEDICARE, BC ==
--- NOTE | 2021-06-23 18:53 | BD ---
EXAMINATION TYPE: Axial Bone Density DATE OF EXAM: 06/23/2021 COMPARISON: 09/21/2016 CLINICAL HISTORY: 75-year-old female postmenopausal screening Height: 61 IN Weight: 131 LBS RISK FACTORS HISTORY OF: Active: YES Postmenopausal woman: PARTIAL HYST AGE 45 Take estrogen and/or progesterone medications: NOT NOW How long: APPROX 10 YEARS Lost more than 2 inches in height since high school: YES 3" MEDICATIONS: Additional Medications: CALCIUM, CHOLESTEROL MEDS, CELEBREX, BABY ASPIRIN, PROTONIX, MIRAPEX EXAM MEASUREMENTS: Bone mineral densitometry was performed using the Obvious System. Bone mineral density as measured about the Lumbar spine is: ----- L1-L4(G/cm2): 1.071 T Score Values are as follows: ----- L2: -1.1 ----- L3: -1.2 ----- L4: 0.4 ----- L1-L4: -0.9 Bone mineral density has: Decreased -1.9% since study of: 09/21/2016 Bone mineral density about the R hip (g/cm2): 0.770 Bone mineral density about the L hip (g/cm2): 0.759 T Score values are as follows: -----R Neck: -1.9 -----L Neck: -2.0 -----R Total: -2.2 -----L Total: -2.0 Bone mineral density has: Decreased -3.1% since study of: 09/21/2016 IMPRESSION: Osteopenia (T Score between -2.5 and -1). There is slightly increased risk of fracture and the patient may be considered for treatment. Re-Screen 2-5 years. NOTE: T-SCORE=SD OF THE YOUNG ADULT MEAN.
== END | disposition home or self-care (01) ==
LOC: RADBDWWP 13:25
PROVIDERS: ATTEND Obstetrics & Gynecology
DX: M85.80 Other specified disorders of bone density and structure, unspecified site (principal); Z80.41 Family history of malignant neoplasm of ovary; Z78.0 Asymptomatic menopausal state
CPT/HCPCS: 77080

== ENCOUNTER → 2021-07-21 | Outpatient (CLI) | payer MEDICARE, BC ==
[2021-07-21 11:34] LABS: Basophils % (A) 1 %; Eosinophils # (A) 0.2 k/uL (0-0.7); Eosinophils % (A) 5 %; HCT 36.9 % (34.0-46.0); HGB 12.3 gm/dL (11.4-16.0); Lymphocytes % (A) 21 %; MCH 32.1 pg (25.0-35.0); MCHC 33.5 g/dL (31.0-37.0); MCV 95.9 fL (80.0-100.0); Mean Platelet Volume 7.4; Monocytes # (A) 0.3 k/uL (0-1.0); Monocytes % (A) 7 %; Neutrophils # (A) 3.2 k/uL (1.3-7.7); Neutrophils % (A) 64 %; Platelet Count 214 k/uL (150-450); RBC 3.85 m/uL (3.80-5.40); RDW 13.3 % (11.5-15.5)
[2021-07-21 11:45] LABS: African American GFR (CKD) >90 (>60 ml/min/1.73 sqM); Anion Gap 3 mmol/L; Blood Urea Nitrogen 18 mg/dL (7-17); Carbon Dioxide 30 mmol/L (22-30); Chloride 104 mmol/L (98-107); Non-African American GFR(CKD) 87 (>60 ml/min/1.73 sqM); Potassium 4.6 mmol/L (3.5-5.1); Sodium 137 mmol/L (137-145)
== END | disposition home or self-care (01) ==
LOC: LABPAT 10:38
PROVIDERS: ATTEND Obstetrics & Gynecology
DX: Z01.812 Encounter for preprocedural laboratory examination (principal); Z01.810 Encounter for preprocedural cardiovascular examination; I10 Essential (primary) hypertension; N81.6 Rectocele
CPT/HCPCS: 80051; 82565; 84520; 85025; 87086

== ENCOUNTER 2021-07-28 08:02 | Day surgery (SDC) | payer MEDICARE, BC ==
[2021-07-23 10:23] VITALS: BMI 23.8
[~2021-07-28 08:02] MED LIST changes: +DEXAMETHASONE SOD PHOSPHATE 4 MG/ML 1 ML VIAL IV ONE; +HYDROmorphone 0.5 MG/0.5 ML SYRINGE IVP PRN; -LIDOCAINE 1% 20 ML VIAL (10MG/ML) FOR IV START INTRADERMA PRN; +ONDANSETRON 4 MG/2 ML VIAL IVP ONE
[2021-07-28] MEDS: LACTATED RINGERS 1,000 ML IV SCH ×2 (09:01→20:57)
[2021-07-28] MEDS ORDERED: MIDAZOLAM 2 MG/2 ML VIAL IVP ONE (09:20)
--- NOTE | 2021-07-28 09:33 | P.ANPRN ---
Procedure Note - Anesthesia - Epidural/Spinal Spinal Time Out Performed: Yes Date of Procedure: 07/28/21 Procedure Start Time: : Procedure Stop Time: :24 Location of Patient: PreOp Indication: Requested by Surgeon Sedation Type: Sedate with meaningful contact maintained Preparation: Sterile Prep Position: Sitting Needle Guage: 25 Narrative: Intrathecal Duramorph 200 Mcg + Fentanyle 25 MCG given intrathecally Blood Aspirated: No Pain Paresthesia on Injection Noted: No Events: Uneventful and Well Tolerated
[2021-07-28] MEDS ORDERED: diphenhydrAMINE 50 MG/ML 1 ML VIAL ONE (09:34)
[2021-07-28] MEDS ORDERED: diphenhydrAMINE 50 MG/ML 1 ML VIAL IVP ONE (09:35)
[2021-07-28] MEDS ORDERED: PHENYLEPHRINE-0.9% NACL SYG 1,000 MCG/10 ML SYRINGE ONE (10:00)
[2021-07-28] MEDS ORDERED: LIDOCAINE 1% INJ 10MG/ML (20 ML MDV) ONE (10:00)
[2021-07-28] MEDS ORDERED: PROPOFOL 10 MG/ML 20 ML VIAL IV ONE (10:00)
[2021-07-28] MEDS ORDERED: ePHEDrine SULFATE/0.9% NACL/PF 50 MG/5 ML SYRINGE IV ONE (10:00)
[2021-07-28] MEDS ORDERED: fentaNYL (PF) 50 MCG/ML 2 ML AMP ONE (10:00)
[2021-07-28] MEDS ORDERED: MIDAZOLAM 2 MG/2 ML VIAL ONE (10:00)
[2021-07-28] MEDS ORDERED: SUCCINYLCHOLINE CHLORIDE 100 MG/5 ML SYR IV ONE (10:00)
[2021-07-28] MEDS ORDERED: VASOPRESSIN 20 UNIT/ML 1 ML VIAL SQ ONE ×2 (10:19)
[2021-07-28] MEDS ORDERED: BACITRACIN ZINC 500 UNIT/GM OINT 28.4 GM TUBE TOPICAL ONE ×2 (10:21→10:37)
[2021-07-28] MEDS ORDERED: IBUPROFEN 600 MG TAB PO PRN (11:04)
[2021-07-28] MEDS ORDERED: ONDANSETRON 4 MG/2 ML VIAL IVP PRN ×2 (11:04→12:25)
[2021-07-28] MEDS ORDERED: METOCLOPRAMIDE 5 MG/ML 2 ML VIAL IVP PRN (11:04)
[2021-07-28] MEDS ORDERED: KETOROLAC 15 MG/ML 1 ML VIAL IVP PRN (11:04)
[2021-07-28] MEDS ORDERED: SIMETHICONE 80 MG CHEWABLE PO PRN (11:04)
--- NOTE | 2021-07-28 11:04 | P.OP ---
Date of Procedure: 07/28/21 Preoperative Diagnosis: Grade 3-4 rectocele Postoperative Diagnosis: same Procedure(s) Performed: Rectocele Anesthesia: SILVIOA Surgeon: Kendra Gaytan Supervisor Unloading #1: Harriet Zhang Estimated Blood Loss (ml): 25 IV fluids (ml): 300 Urine output (ml): 125 Pathology: none sent Condition: stable Description of Procedure: Patient is brought to the operating suite where she is placed in the dorsal lithotomy position. Spinal with Duramorph was placed in the preoperative area. Antibiotics are given. General anesthetic is now administered. The patient is prepped and draped in the usual sterile fashion. The appropriate timeout is per formed to assure proper patient and procedural identification. Bladder is drained for approximately 125 mL of clear yellow urine. A triangular portion of tissue is removed from the perineal body. The posterior vagina is injected with a dilute Pitressin solution. Metzenbaum scissors are used in a plane is created to the apex of the rectocele defect. The edges are held with Allis clamps, Metzenbaum scissors are used to open the mucosa to the top of the defect. Sponges are used to gently sweep the underlying fascial plane from the overlying mucosa. 2-0 Vicryl sutures used in the midline in an interrupted fashion to bring the fascial edges together thereby completely reducing the grade 3-4 rectocele. Metzenbaum scissors are used to trim the redundant mucosa. 2-0 Vicryl issues Gen. running locking manner on the posterior vaginal vault. An episiotomy like closure is used for final repair. Irvin catheter is placed and the urine is clear. Vagina is packed with a 1 inch iodophor gauze with basic tracing. Rectal exam reveals no defects or suture material in the rectum. All sponge needle and enhancement counts are correct. Patient is brought back to the recovery room in very good condition with stable vital signs including blood pressure 143/74, pulse 80, 100% O2 saturation. Total estimated blood loss 25 mL's.
[2021-07-28] MEDS: diphenhydrAMINE 50 MG/ML 1 ML VIAL IVP PRN ×2 (11:38→17:05)
[2021-07-28] MEDS ORDERED: NALOXONE 0.4 MG/ML 1 ML VIAL IV PRN (12:25)
[2021-07-28] MEDS ORDERED: HYDROcodone/APAP 5-325MG 1 EACH TAB PO STA (20:21)
[2021-07-28] MEDS ORDERED: PRAMIPEXOLE DI HCL 1.5 MG PO SCH (21:00)
--- NOTE | 2021-07-29 07:07 | P.PN ---
Progress Note - Text 07/29/21 639am Female status post rectocele repair with Dr. Sloan were noted patient seen and evaluated this morning for postop pain control, patient received spinal Duramorph, she has a VAS of 1 with mild complaints of pruritus. She received Benadryl seems to be working well
--- NOTE | 2021-07-29 07:48 | P.DS ---
Providers Date of admission: 07/28/21 Attending physician: Kendra Gaytna Primary care physician: [facility] Course: This is a 75-year-old female who presented with an increasingly symptomatic grade 3-4 rectocele. After consultation she elected surgical repair, declining option of pessary. Please see my dictated history and physical for details. Yesterday she was admitted and underwent a rectocele repair. Surgery was unremarkable, vaginal packing placed, Irvin catheter placed. She was given a spinal with Duramorph which initially caused itching, alleviated by Benadryl. Please see my dictated operative note for details. This morning the patient is doing well. She is ambulating, passing flatus, eating regular food, urinating without issue. She complains of no pain. The itching has resolved. She slept well and was judged to be in very good condition for discharge home. She will follow-up with me in the office in 2 weeks. I have reminded her no intercourse, tampons or douching. No vacuuming, no heavy lifting, no driving for 2 weeks. She will use [id number] Motrin as needed for pain. She will call with any fevers shakes or chills, back pain, vaginal bleeding, or any pain not alleviated by Motrin. Resume home medications. Assessment: Doing well postoperative day #1 Patient Condition at Discharge: Good Plan - Discharge Summary Discharge Rx Participant: No New Discharge Prescriptions: No Action Ezetimibe/Simvastatin [Vytorin 10-20 mg Tablet] 1 tab PO HS Aspirin 81 mg PO DAILY Vit A,C & E/Lutein/Minerals [Ocuvite with Lutein Tablet] 1 tab PO DAILY DULoxetine HCL [Cymbalta] 60 mg PO QAM Pantoprazole Sodium [Protonix] 40 mg PO BID Multivitamin [Multivitamins Adult Gummies] 1 each PO DAILY Pramipexole Di-HCl [Mirapex ER] 1.5 mg PO HS HYDROcodone/APAP 10-325MG [[place] 10-325] 1 mg PO DAILY PRN PRN Reason: Pain Lisinopril [Zestril] 10 mg PO DAILY Discharge Medication List Aspirin 81 mg PO DAILY 06/11/14 [History] Ezetimibe/Simvastatin [Vytorin 10-20 mg Tablet] 1 tab PO HS 06/11/14 [History] Vit A,C & E/Lutein/Minerals [Ocuvite with Lutein Tablet] 1 tab PO DAILY 06/11/14 [History] DULoxetine HCL [Cymbalta] 60 mg PO QAM 02/10/17 [History] Multivitamin [Multivitamins Adult Gummies] 1 each PO DAILY 04/02/20 [History] Pantoprazole Sodium [Protonix] 40 mg PO BID 04/02/20 [History] HYDROcodone/APAP 10-325MG [[place] 10-325] 1 mg PO DAILY PRN 06/17/21 [History] Pramipexole Di-HCl [Mirapex ER] 1.5 mg PO HS 06/17/21 [History] Lisinopril [Zestril] 10 mg PO DAILY 07/28/21 [History] Follow up Appointment(s)/Referral(s): Kendra Gaytan MD [STAFF PHYSICIAN] - 2 Weeks Discharge Disposition: HOME SELF-CARE
[2021-07-29] MEDS ORDERED: DULoxetine HCL 60 MG CAPSULE.DR PO SCH (09:00)
[2021-07-29 09:19] VITALS: BP 135/70; PULSE 70; RESP 20; TEMP 98.4
[2021-07-29] MEDS ORDERED: ACETAMINOPHEN TAB 325 MG TAB PO PRN (11:05)
== END 2021-07-29 10:32 | disposition home or self-care (01) ==
LOC: OR 08:02 → 6PED 11:49 → OR 07-29 10:32
PROVIDERS: ATTEND Obstetrics & Gynecology
DX: N81.6 Rectocele (principal); E78.5 Hyperlipidemia, unspecified; F32.9 Major depressive disorder, single episode, unspecified; F41.9 Anxiety disorder, unspecified; M19.90 Unspecified osteoarthritis, unspecified site; G25.81 Restless legs syndrome; M85.80 Other specified disorders of bone density and structure, unspecified site; K21.9 Gastro-esophageal reflux disease without esophagitis; Z79.82 Long term (current) use of aspirin; Z79.899 Other long term (current) drug therapy; Z90.710 Acquired absence of both cervix and uterus; Z96.653 Presence of artificial knee joint, bilateral; Z88.5 Allergy status to narcotic agent
CPT/HCPCS: 57250; J2250; J1200; J1100; J0690; J2405; 86850; 86900; 86901

== ENCOUNTER → 2022-07-07 | Outpatient (CLI) | payer MEDICARE, BC ==
[2022-07-07 11:28] VITALS: BP 141/87; PULSE 73; RESP 17; TEMP 97.8
--- NOTE | 2022-07-07 12:25 | P.HPOB ---
History of Present Illness H&P Date: 07/07/22 Chief Complaint: The patient is here for her routine gynecologic exam and ma mmogram. This is a 76-year-old 013 with an LMP of 1988. The patient is status post MELISSA and unilateral oophorectomy for benign reasons. She underwent a rectocele repair by Dr. Gaytan last year. She has been experiencing occasional urge incontinence where she has to get to the bathroom right away or she will leak urine. She denies any immediate urinary leakage with coughing or sneezing. Review of Systems The patient has lost 3 pounds over the last year. She denies respiratory, cardiac, or G.I. problems. : See HPI. Past Medical History Past Medical History: Cancer, GERD/Reflux, Hyperlipidemia, Hypertension, Osteoarthritis (OA) Additional Past Medical History / Comment(s): Basal cell skin cancer. RESTLESS LEG SYNDROME, osteopenia. 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 grade 2-3 rectocele. History of Any Multi-Drug Resistant Organisms: None Reported Past Surgical History: Breast Surgery, Heart Catheterization, Hernia Repair, Hysterectomy, Joint Replacement, Orthopedic Surgery Additional Past Surgical History / Comment(s): Left shoulder surgery, RIGHT FOOT HAMMER TOE, harsh bunionectomy, harsh BREAST REDUCTION, HARSH KNEE REPLACEMENT. Colonoscopy 2016(multiple in past). MELISSA with unilateral oophorectomy in 1988. Cataract surgery. Bunionectomy. Rectocele repair in 2020. Past Anesthesia/Blood Transfusion Reactions: No Reported Reaction Past Psychological History: Anxiety, Depression Smoking Status: Never smoker Past Alcohol Use History: Daily (1 sergio of wine per day) Additional Past Alcohol Use History / Comment(s): . Past Drug Use History: None Reported Additional Drug Use History / Comment(s): one glass of wine a day. Additional History: She has been since 1960 and is not sexually active. - Past Family History Mother Family Medical History: Cancer Additional Family Medical History / Comment(s): ovarian CA Brother(s) Family Medical History: Cancer, Deep Vein Thrombosis (DVT) Additional Family Medical History / Comment(s): LEUKEMIA Sister(s) Family Medical History: Cancer, Deep Vein Thrombosis (DVT) Additional Family Medical History / Comment(s): 3 SISTERS HAD DVT Medications and Allergies Home Medications Medication Instructions Recorded Confirmed Type Aspirin 81 mg PO DAILY 06/11/14 07/07/22 History Ezetimibe/Simvastatin [Vytorin 1 tab PO HS 06/11/14 07/07/22 History 10-20 mg Tablet] Vit A,C & E/Lutein/Minerals 1 tab PO DAILY 06/11/14 07/07/22 History [Ocuvite with Lutein Tablet] DULoxetine HCL [Cymbalta] 60 mg PO QAM 02/10/17 07/07/22 History Multivitamin [Multivitamins Adult 1 each PO DAILY 04/02/20 07/07/22 History Gummies] Pantoprazole Sodium [Protonix] 40 mg PO BID 04/02/20 07/07/22 History HYDROcodone/APAP 10-325MG [[place] 1 mg PO DAILY PRN 06/17/21 07/07/22 History 10-325] Pramipexole Di-HCl [Mirapex ER] 1.5 mg PO HS 06/17/21 07/07/22 History lisinopriL [Zestril] 10 mg PO DAILY 07/28/21 07/07/22 History Calcium Carbonate [Calcium] 600 mg PO DAILY 07/07/22 07/07/22 History Allergies Allergy/AdvReac Type Severity Reaction Status Date / Time meperidine [From Demerol] Allergy Unknown Verified 07/07/22 11:21 Exam Vital Signs Temp Pulse Resp BP Pulse Ox 07/07/22 11:25 97.8 F 73 17 141/87 97 Intake and Output 07/06/22 07/07/22 07/07/22 22:59 06:59 14:59 Other: Weight 58.06 kg Height 5 feet 3 inches, weight 128 pounds, BMI 22.7. This is a well-developed well-nourished white female who is alert and oriented times 3 in no acute distress. HEENT: Within normal limits. NECK: Supple without mass or thyromegaly. CHEST AND LUNGS: Clear to auscultation. HEART: Regular rate and rhythm. BREASTS: Are without mass or discharge. Breasts are consistent with a breast reduction surgery in the past. AXILLARY EXAM: Negative for adenopathy. BACK: Negative for CVA tenderness. ABDOMEN: Soft, nontender, without palpable masses. PELVIC EXAM: External genitalia appears normal with moderate atrophy. Vagina appears normal is moderate atrophy. There is no evidence of prolapse. There is no evidence of cystocele. There is minimal urethral mobility with Valsalva. No urinary leakage was demonstrated. Bimanual examination is negative for mass or tenderness. RECTAL EXAM: Rectovaginal exam is negative for mass or tenderness and is nega tive for occult blood. There is good vaginal and rectal sphincter tone. EXTREMITIES: Nontender. IMPRESSION: 1. 76-year-old menopausal female who is status post MELISSA and unilateral oophorectomy for benign reasons, with occasional urinary urge incontinence, with no significant physical findings on exam today. 2. Status post rectocele repair in 2020 with no significant prolapse on exam. 3. History of osteopenia. 4. Family history of ovarian cancer in her mother. PLAN: 1. Pap smears have been discontinued. 2. Self breast awareness was discussed with the patient. We have also discussed symptoms associated with inflammatory breast cancer. 3. Screening mammogram will be done today. 4. Osteoporosis prevention was discussed. I have stressed the importance of adequate calcium, vitamin D and regular exercise. Recommended amounts of calcium and vitamin D were also discussed. Her last bone density test was done on 06/23/2021. We will plan on repeating this next year. 5. We have had a long discussion regarding her occasional need to get to the bathroom right away. We have discussed urge incontinence. I have recommended regular ketal exercises and timed voids. Instructions on these were discussed with the patient. If things are not improving, or worsening, she was instructed to return and we can consider other options such as estrogen vaginal cream or medications such as Detrol. 6. Pelvic ultrasound was recommended because of her mother's history of ovarian cancer. She states she forgot to do it last year but would like to do it this year. The order slip was given to the patient for this. 7. She was advised to return in one year for her annual well woman exam and as needed.
--- NOTE | 2022-07-08 08:40 | MM ---
Reason for Exam: Screening (asymptomatic). Last mammogram was performed 1 year(s) and 1 month(s) ago. Patient History: Menarche at age 11. Left ovary removed at age 43. Right ovary removed at age 43. Hysterectomy at age 43. Postmenopausal. Patient used Estrogen for 9 years. Excisional Biopsy on the Right side. Risk Values: Emi 5 year model risk: 1.5%. NCI Lifetime model risk: 2.6%. Prior Study Comparison: 04/25/2019 Bilateral Screening Mammogram, [facility]. 06/10/2020 Bilateral Screening Mammogram, [facility]. 06/17/2021 Bilateral Screening Mammogram, [facility]. Tissue Density: The breast tissue is heterogeneously dense. This may lower the sensitivity of mammography. Findings: Analyzed By CAD. Asymmetry demonstrated within the right lateral breast appears more prominent. There is no suspicious group of calcifications. Benign-appearing calcifications within both breasts. No new suspicious mass in left breast. Overall Assessment: Incomplete: need additional imaging evaluation, BI-RAD 0 Management: Diagnostic Mammogram of the right breast. A clinical breast exam by your physician is recommended on an annual basis and results should be correlated with mammographic findings. [facility] will attempt to contact patient to return for supplemental views and ultrasound if indicated. Electronically signed and approved by: Kevin Bullard D.O.
== END ==
LOC: WWCWWP 11:17
PROVIDERS: ATTEND Obstetrics & Gynecology
DX: Z12.31 Encounter for screening mammogram for malignant neoplasm of breast (principal); Z01.419 Encounter for gynecological examination (general) (routine) without abnormal findings; N39.41 Urge incontinence; Z78.0 Asymptomatic menopausal state; Z90.710 Acquired absence of both cervix and uterus; Z87.39 Personal history of other diseases of the musculoskeletal system and connective tissue; Z80.41 Family history of malignant neoplasm of ovary; E78.5 Hyperlipidemia, unspecified; I10 Essential (primary) hypertension; M19.90 Unspecified osteoarthritis, unspecified site; F41.9 Anxiety disorder, unspecified; F32.A Depression, unspecified; Z88.5 Allergy status to narcotic agent
CPT/HCPCS: 77063; 77067

== ENCOUNTER → 2022-07-31 | Outpatient (CLI) | payer MEDICARE, BC ==
--- NOTE | 2022-07-29 12:19 | P.PN ---
Progress Note - Text Progress Note Date: 07/29/22 The patient had canceled her diagnostic right breast workup following her incomplete screening mammogram. I spoke with the patient on the phone today. The patient states she was a little upset because in the past, it seemed like she was always been called back for additional views. We have discussed how she was not call back in 2018, 2019, 2019, and 2020. I discussed how I reviewed her most recent ultrasound with the radiologist, Dr. Caicedo. I discussed with her Hollow her breasts are very heterogeneous with denser areas. I have also discussed how there was a change in an area in the right breast.. I have recommended that she return for the recommended follow-up. She states she will do this. The radiology will contact the patient today to make this appointment. In the past, she states she had gone to the [place] area for mammograms and she was considering doing this again. I have recommended that she do the follow-up this year here and after the workup is completed, she can decide if she wants to do her future mammograms elsewhere.
--- NOTE | 2022-08-04 08:17 | MM ---
Reason for Exam: Additional evaluation requested from abnormal screening. Last screening mammogram was performed less than 1 month ago. Patient History: Menarche at age 11. Left ovary removed at age 43. Right ovary removed at age 43. Hysterectomy at age 43. Postmenopausal. Patient used Estrogen for 9 years. Excisional Biopsy on the Right side. Risk Values: Emi 5 year model risk: 1.5%. NCI Lifetime model risk: 2.6%. Tissue Density: Right: The breast tissue is heterogeneously dense. This may lower the sensitivity of mammography. Findings: Analyzed By CAD. Under compression there appears to be partial dispersion of the focal asymmetry in the upper-outer aspect right breast. Suspicious underlying spiculated or lobular mass is not evident. Benign calcifications are present. Overall Assessment: Probably benign, BI-RAD 3 Management: Diagnostic Mammogram of the right breast in 6 months. A negative mammogram report should not preclude additional follow up of suspicious palpable abnormalities. Patient should continue monthly self breast exam. A clinical breast exam by your physician is recommended on an annual basis and results should be correlated with mammographic findings. Electronically signed and approved by: Zeus Guevara D.O. Radiologis
== END | disposition home or self-care (01) ==
LOC: RADMAMWWP 13:29
PROVIDERS: ATTEND Obstetrics & Gynecology
DX: R92.8 Other abnormal and inconclusive findings on diagnostic imaging of breast (principal); Z78.0 Asymptomatic menopausal state; Z98.890 Other specified postprocedural states
CPT/HCPCS: 77065; G0279; 77061

== ENCOUNTER → 2023-03-23 | Outpatient (CLI) | payer MEDICARE, BC ==
--- NOTE | 2023-03-26 13:15 | MM ---
Reason for Exam: Follow-up at short interval from prior study. Last screening mammogram was performed 8 month(s) ago. Patient History: Menarche at age 11. First Full-Term at age 18. Left ovary removed at age 43. Right ovary removed at age 43. Hysterectomy at age 43. Postmenopausal. Patient used Estrogen for 9 years. Excisional Biopsy on the Right side. Risk Values: Emi 5 year model risk: 1.8%. NCI Lifetime model risk: 3.0%. Prior Study Comparison: 03/03/2017 Screening Mammogram, [facility]. 04/12/2018 Bilateral Screening Mammogram, [facility]. 04/25/2019 Bilateral Screening Mammogram, [facility]. 06/10/2020 Bilateral Screening Mammogram, [facility]. 06/17/2021 Bilateral Screening Mammogram, [facility]. 07/07/2022 Bilateral MG 3D screening mammo w/cad, [facility]. 07/31/2022 Right MG 3D work up w/cad RT, [facility]. Tissue Density: Right: The breast tissue is extremely dense which could obscure a lesion on mammography. Findings: Analyzed By CAD. No evidence for persistent mass or distortion. Vascular and benign punctate calcifications persist without suspicious cluster. Overall Assessment: Benign, BI-RAD 2 Management: Screening Mammogram of both breasts in 6 months. A clinical breast exam by your physician is recommended on an annual basis and results should be correlated with mammographic findings. This exam should not preclude additional follow-up of suspicious palpable abnormalities. Results were given to the patient verbally at the time of exam. Electronically signed and approved by: Sammy Garza M.D. Radiologis
== END | disposition home or self-care (01) ==
LOC: RADMAMWWP 09:26
PROVIDERS: ATTEND Obstetrics & Gynecology
DX: R92.8 Other abnormal and inconclusive findings on diagnostic imaging of breast (principal); Z78.0 Asymptomatic menopausal state; Z98.890 Other specified postprocedural states
CPT/HCPCS: 77065; G0279; 77061

== ENCOUNTER → 2023-10-05 | Outpatient (CLI) | payer MEDICARE, BC ==
[2023-10-05 11:08] VITALS: BP 183/76; PULSE 73; RESP 16; TEMP 98.3
--- NOTE | 2023-10-05 12:00 | P.HPOB ---
History of Present Illness H&P Date: 10/05/23 Chief Complaint: The patient is here for her routine gynecologic exam and ma mmogram. This is an 78-year-old 013 with an LMP of 1988. She is status post MELISSA and unilateral oophorectomy for benign reasons. She underwent a rectocele repair in 2020 and states this has held up fine. She is without gynecologic complaints. Review of Systems Weight has been stable. She denies respiratory or cardiac problems. GI: She has had occasional intestinal gas and has also noticed her stools have been small and hard. Past Medical History Past Medical History: Cancer, GERD/Reflux, Hyperlipidemia, Hypertension, Osteoarthritis (OA) Additional Past Medical History / Comment(s): Basal cell skin cancer. RESTLESS LEG SYNDROME, osteopenia. 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 History of Any Multi-Drug Resistant Organisms: None Reported Past Surgical History: Breast Surgery, Heart Catheterization, Hernia Repair, Hysterectomy, Joint Replacement, Orthopedic Surgery Additional Past Surgical History / Comment(s): Left shoulder surgery, RIGHT FOOT HAMMER TOE, harsh bunionectomy, harsh BREAST REDUCTION, HARSH KNEE REPLACEMENT. Colonoscopy 2016(multiple in past). MELISSA with unilateral oophorectomy in 1988. Cataract surgery. Bunionectomy. Rectocele repair in 2020. Past Anesthesia/Blood Transfusion Reactions: No Reported Reaction Past Psychological History: Anxiety, Depression Smoking Status: Never smoker Past Alcohol Use History: Daily (1 glass of wine per day.) Additional Past Alcohol Use History / Comment(s): . Past Drug Use History: None Reported Additional Drug Use History / Comment(s): one glass of wine a day. Additional History: She has been since 1960 and is not sexually active. - Past Family History Mother Family Medical History: Cancer Additional Family Medical History / Comment(s): ovarian CA Brother(s) Family Medical History: Cancer, Deep Vein Thrombosis (DVT) Additional Family Medical History / Comment(s): LEUKEMIA Sister(s) Family Medical History: Cancer, Deep Vein Thrombosis (DVT) Additional Family Medical History / Comment(s): 3 SISTERS HAD DVT Medications and Allergies Home Medications Medication Instructions Recorded Confirmed Type Aspirin 81 mg PO DAILY 06/11/14 10/05/23 History Ezetimibe/Simvastatin [Vytorin 1 tab PO HS 06/11/14 10/05/23 History 10-20 mg Tablet] Vit A,C & E/Lutein/Minerals 1 tab PO DAILY 06/11/14 10/05/23 History [Ocuvite with Lutein Tablet] DULoxetine HCL [Cymbalta] 60 mg PO QAM 02/10/17 10/05/23 History Multivitamin [Multivitamins Adult 1 each PO DAILY 04/02/20 10/05/23 History Gummies] Pantoprazole Sodium [Protonix] 40 mg PO BID 04/02/20 10/05/23 History HYDROcodone/APAP 10-325MG [[place] 1 mg PO DAILY PRN 06/17/21 10/05/23 History 10-325] Pramipexole Di-HCl [Mirapex ER] 1.5 mg PO HS 06/17/21 10/05/23 History lisinopriL [Zestril] 10 mg PO DAILY 07/28/21 10/05/23 History Calcium Carbonate [Calcium] 600 mg PO DAILY 07/07/22 10/05/23 History Allergies Allergy/AdvReac Type Severity Reaction Status Date / Time meperidine [From Demerol] Allergy Unknown Verified 10/05/23 10:55 Exam Vital Signs Temp Pulse Resp BP Pulse Ox 10/05/23 10:56 98.3 F 73 16 183/76 98 Intake and Output 10/04/23 10/05/23 10/05/23 22:59 06:59 14:59 Other: Weight 58.06 kg Repeat blood pressure 152/88. Height 5 feet 2 inches, weight 128 pounds, BMI 23.4. This is a well-developed well-nourished white female who is alert and oriented times 3 in no acute distress. HEENT: Within normal limits. NECK: Supple without mass or thyromegaly. CHEST AND LUNGS: Clear to auscultation. HEART: Regular rate and rhythm. BREASTS: Are without mass or discharge. There is bilateral central nipple inversion. The patient states that have been this way for many years. AXILLARY EXAM: Negative for adenopathy. BACK: Negative for CVA tenderness. ABDOMEN: Soft, nontender, without palpable masses. PELVIC EXAM: External genitalia appears normal with moderate atrophy. Vagina appears normal with moderate atrophy. There is no evidence of prolapse. Bimanual examination is negative for mass or tenderness. RECTAL EXAM: Rectovaginal exam is negative for mass or tenderness and is negative for occult blood. EXTREMITIES: Nontender. IMPRESSION: 1. 78-year-old menopausal female status post MELISSA with unilateral oophorectomy, with normal gynecologic exam. 2. Family history of ovarian cancer in her mother. 3. History of osteopenia. 4. History of rectocele status post rectocele repair which seems to be holding up well. 5. Elevated blood pressure with history of chronic hypertension. PLAN: 1. Pap smears have been discontinued. 2. Self breast awareness was discussed with the patient. We have also discussed symptoms associated with inflammatory breast cancer. 3. Screening mammogram will be done today. 4. Osteoporosis prevention was discussed. I have stressed the importance of adequate calcium, vitamin D and regular exercise. Recommended amounts of calcium and vitamin D were also discussed. I recommended repeating the bone density testing since it has been about 20 if years since her last one. The order slip was given to the patient for this. 5. Yearly pelvic ultrasound will be continued because of her family history of ovarian cancer. The order slip was given to the patient for this. 6. I have recommended that she check her own blood pressures at home since she does have a blood pressure cuff. I recommended that she check it daily. She is to follow-up with Dr. Amador for blood pressure elevations. 7. She was advised to return in one year for her annual well woman exam.
--- NOTE | 2023-10-06 23:27 | MM ---
Reason for Exam: Screening (asymptomatic). Last mammogram was performed 1 year(s) and 3 month(s) ago. Patient History: Menarche at age 11. First Full-Term at age 18. Left ovary removed at age 43. Right ovary removed at age 43. Hysterectomy at age 43. Postmenopausal. Patient used Estrogen for 9 years. Bilateral Reduction. Excisional Biopsy on the Right side. Risk Values: Emi 5 year model risk: 1.7%. NCI Lifetime model risk: 2.7%. Prior Study Comparison: 07/07/2022 Bilateral MG 3D screening mammo w/cad, [facility]. 07/31/2022 Right MG 3D work up w/cad RT, [facility]. 03/23/2023 Right MG 3D diag mammo w/cad RT, [facility]. Tissue Density: The breast tissue is heterogeneously dense. This may lower the sensitivity of mammography. Findings: Analyzed By CAD. Unchanged bilateral asymmetric densities. Benign bilateral vascular calcifications are also present. There is no suspicious group of microcalcifications or new suspicious mass in either breast. Overall Assessment: Benign, BI-RAD 2 Management: Screening Mammogram of both breasts in 1 year. . Patient should continue monthly self-breast exams. A clinical breast exam by your physician is recommended on an annual basis. This exam should not preclude additional follow-up of suspicious palpable abnormalities. Note on Emi scores and lifetime risk: 1. A Emi score greater than 3% is considered moderate risk. If this is the case, consider specialist referral to assess eligibility for a risk reducing agent. 2. If overall lifetime risk for the development of breast cancer is 20% or higher, the patient may qualify for future screening with alternating mammogram and breast MRI. Electronically signed and approved by: Michael Quinonez M.D. Radiologist
== END ==
LOC: WWCWWP 10:28
PROVIDERS: ATTEND Obstetrics & Gynecology
DX: Z12.31 Encounter for screening mammogram for malignant neoplasm of breast (principal); I10 Essential (primary) hypertension; M85.80 Other specified disorders of bone density and structure, unspecified site; E78.5 Hyperlipidemia, unspecified; M19.90 Unspecified osteoarthritis, unspecified site; K21.9 Gastro-esophageal reflux disease without esophagitis; G25.81 Restless legs syndrome; F41.9 Anxiety disorder, unspecified; F32.A Depression, unspecified; Z85.828 Personal history of other malignant neoplasm of skin; Z78.0 Asymptomatic menopausal state; Z80.41 Family history of malignant neoplasm of ovary; Z90.721 Acquired absence of ovaries, unilateral; Z90.710 Acquired absence of both cervix and uterus; Z79.899 Other long term (current) drug therapy; Z79.82 Long term (current) use of aspirin; Z88.5 Allergy status to narcotic agent
CPT/HCPCS: 77063; 77067

== ENCOUNTER → 2023-11-11 | Outpatient (CLI) | payer MEDICARE, BC ==
--- NOTE | 2023-11-11 13:22 | BD ---
EXAMINATION TYPE: Axial Bone Density DATE OF EXAM: 11/11/2023 CLINICAL HISTORY: 78 years old Female. ICD-10 CODE: Z80.41 FAMILY HISTORY OF MALIGNANT NEOPLASM OF O VA Height: 61.2 Weight: 125 FRAX RISK QUESTIONS: nothing to note here RISK FACTORS HISTORY OF: Postmenopausal woman: at 45 Take estrogen and/or progesterone medications: past...X10 yrs Lost more than 2 inches in height since high school: yes Frequent falls: unsteady gait Hyperparathyroidism: no Adrenal Insufficiency: no MEDICATIONS: Additional Medications: calcium, statin for cholesterol, celebrex, aspirin, protonix, mirapex, bp med s, cymbalta, radiation treatments for lumbar and both hands, Additional History: cholesterol, reflux, arthritis, hypertension, EXAM MEASUREMENTS: Bone mineral densitometry was performed using the [employer] System. Bone mineral density as measured about the Lumbar spine is: ----- L1-L4(G/cm2): 1.036 T Score Values are as follows: ----- L1: -1.6 ----- L2: -2.2 ----- L3: -1.1 ----- L4: -0.1 ----- L1-L4: -1.2 Z Score Values are as follows: ----- L1: 0.6 ----- L2: 0.0 ----- L3: 1.1 ----- L4: 2.0 ----- L1-L4: 0.9 Bone mineral density has: Decreased -3.3% since study of: 06.23.2021 Bone mineral density about the R hip (g/cm2): 0.747 Bone mineral density about the L hip (g/cm2): 0.741 T Score values are as follows: -----R Neck: -1.8 -----L Neck: -2.2 -----R Total: -2.1 -----L Total: -2.1 Z Score values are as follows: -----R Neck: 0.5 -----L Neck: 0.1 -----R Total: 0.1 -----L Total: 0.1 Bone mineral density has: Increased 0.1% since study of: 06.23.2021 FRAX%s: The graph provided illustrates a 16.4% chance for a major osteoporotic fx and a 5.3% chance f or the hips probability for fx in 10 years time. IMPRESSION: Osteopenia (T Score between -2.5 and -1). There is slightly increased risk of fracture and the patient may be considered for treatment. Re-Screen 2-5 years. NOTE: T-SCORE=SD OF THE YOUNG ADULT MEAN.
== END | disposition home or self-care (01) ==
LOC: RADUSWWP 08:51
PROVIDERS: ATTEND Obstetrics & Gynecology
DX: M85.89 Other specified disorders of bone density and structure, multiple sites (principal); Z80.41 Family history of malignant neoplasm of ovary; Z78.0 Asymptomatic menopausal state
CPT/HCPCS: 77080

== ENCOUNTER → 2023-12-06 | Outpatient (CLI) | payer MEDICARE, BC ==
--- NOTE | 2023-12-06 15:10 | CT ---
EXAMINATION TYPE: CT brain wo con DATE OF EXAM: 12/06/2023 COMPARISON: None HISTORY: 78-year-old female R55, syncope and collapse, FALL TECHNIQUE: Examination was done in axial plane without intravenous contrast. Coronal and sagittal r econstructions performed. CT DLP: 1082 mGycm Automated exposure control for dose reduction was used. FINDINGS: There is no evidence of acute intracranial hemorrhage, acute ischemic changes, mass, mass-effect, or extra-axial fluid collection. There is no effacement of cerebral sulci or basal subarachnoid cister ns. There is no hydrocephalus. There is no midline shift. Kyle-white matter distinction is preserv ed. Incidental partially sella. Mild to moderate patchy periventricular white matter hypodensities Frothy air-fluid level left maxillary sinus. Remainder of the paranasal sinuses and mastoid air cells well pneumatized. The globes are intact. IMPRESSION: 1. No acute intracranial abnormality seen. Mild to moderate patchy burden of chronic small vessel isc hemic disease. 2. Correlate for acute left maxillary sinusitis.
== END | disposition home or self-care (01) ==
LOC: RADCTMAIN 14:30
PROVIDERS: ATTEND Internal Medicine Geriatric Medicine
DX: I67.82 Cerebral ischemia (principal); R55 Syncope and collapse
CPT/HCPCS: 70450

== ENCOUNTER → 2024-12-13 | Outpatient (CLI) | payer MEDICARE ==
--- NOTE | 2024-12-13 13:45 | MM ---
Reason for Exam: Screening (asymptomatic). Last mammogram was performed 1 year(s) and 2 month(s) ago. Patient History: Menarche at age 11. First Full-Term at age 18. Left ovary removed at age 43. Right ovary removed at age 43. Hysterectomy at age 43. Postmenopausal. Patient used Estrogen for 9 years. Bilateral Reduction. Excisional Biopsy on the Right side. Risk Values: Emi 5 year model risk: 1.7%. NCI Lifetime model risk: 2.5%. Prior Study Comparison: 07/31/2022 Right MG 3D work up w/cad RT, [facility]. 03/23/2023 Right MG 3D diag mammo w/cad RT, [facility]. 10/05/2023 Bilateral MG 3D screening mammo w/cad, [facility]. Tissue Density: The breasts are heterogeneously dense, which may obscure small masses. Findings: Analyzed By CAD. Benign-appearing vascular calcifications bilaterally is redemonstrated. There are scattered tiny benign-appearing round calcifications bilaterally again seen. Heterogeneous tissue extends towards the bilateral axilla similar to priors. There is no suspicious group of microcalcifications or new suspicious mass in either breast. Overall Assessment: Benign, BI-RAD 2 Management: Screening Mammogram of both breasts in 1 year. Some advise annual bilateral breast ultrasound surveillance in patients with background dense tissue. Patient should continue monthly self-breast exams. A clinical breast exam by your physician is recommended on an annual basis. This exam should not preclude additional follow-up of suspicious palpable abnormalities. Note on Emi scores and lifetime risk: 1. A Mei score greater than 3% is considered moderate risk. If this is the case, consider specialist referral to assess eligibility for a risk reducing agent. 2. If overall lifetime risk for the development of breast cancer is 20% or higher, the patient may qualify for future screening with alternating mammogram and breast MRI. [facility], , 12/13/2024 1:42 PM. Electronically signed and approved by: Clyde Clark M.D.
== END | disposition home or self-care (01) ==
LOC: RADMAMWWP 09:27
PROVIDERS: ATTEND Internal Medicine Geriatric Medicine
DX: Z12.31 Encounter for screening mammogram for malignant neoplasm of breast (principal); Z90.722 Acquired absence of ovaries, bilateral; Z78.0 Asymptomatic menopausal state; R92.333 Mammographic heterogeneous density, bilateral breasts
CPT/HCPCS: 77063; 77067